=== PATIENT | female | born 1990 | race Caucasian/White ===

== ENCOUNTER 2016-12-23 21:52 | Emergency (ER) | payer OTHER, SELFPAY ==
[~2016-12-23 21:52] MED LIST: FERR325T3 PO; IBUP80TA PO; PERCOCET PO; PRENTAB7 PO; ZITHTAB PO
[2016-12-23] MEDS ORDERED: MORPHINE 4 MG/ML 1ML SYRINGE As Ordered ONE (22:56)
[2016-12-23] MEDS ORDERED: METOCLOPRAMIDE INJ 10MG/2ML VIAL (J2765) As Ordered ONE (22:56)
[2016-12-23 23:05] LABS: BASO % 0.3 % (0.0-1.0); EOS # 0.1 K/mm3 (0.0-0.50); EOS % 1.1 % (0.0-3.0); LARGE UNSTAINED CELL # 0.1 K/mm3 (0.0-0.4); LYMPH # 2.3 K/mm3 (1.5-6.5); LYMPH % 24.7 % (24.0-44.0); MEAN CORPUSCULAR HEMOGLOBIN 31.4 pg (27.0-33.0); MEAN CORPUSCULAR HGB CONC 34.2 g/dl (32.0-36.5); MONO # 0.5 K/mm3 (0.0-0.8); MONO % 5.1 % (0.0-5.0); NEUTROPHILS # 5.9 K/mm3 (1.8-7.7); NEUTROPHILS % 67.6 % (36.0-66.0); PLATELET COUNT, AUTOMATED 213 k/mm3 (150-450); RED CELL DISTRIBUTION WIDTH 12.6 % (11.5-14.5); WHITE BLOOD COUNT 8.7 K/mm3 (4.0-10.0)
[2016-12-23 23:29] LABS: CONTROL LINE HCG INT CTR LINE PRESENT
[2016-12-23 23:37] LABS: ALBUMIN 3.7 GM/DL (3.2-5.2); ALBUMIN/GLOBULIN RATIO 1.32 (1.00-1.93); ALKALINE PHOSPHATASE 55 U/L (45-117); ALT/SGPT 14 U/L (12-78); AMYLASE 52 U/L (25-115); ANION GAP 7 MEQ/L (8-16); AST/SGOT 9 U/L (15-37); BILIRUBIN,DIRECT 0.2 MG/DL (0.0-0.2); BILIRUBIN,TOTAL 0.5 MG/DL (0.2-1.0); BLOOD UREA NITROGEN 13 MG/DL (7-18); CALCIUM LEVEL 8.2 MG/DL (8.5-10.1); CARBON DIOXIDE LEVEL 26 MEQ/L (21-32); CHLORIDE LEVEL 110 MEQ/L (98-107); CREATININE FOR GFR 0.95 MG/DL (0.55-1.02); GLOMERULAR FILTRATION RATE > 60.0 (>60); GLUCOSE, FASTING 87 MG/DL (70-105); POTASSIUM SERUM 3.5 MEQ/L (3.5-5.1); SODIUM LEVEL 143 MEQ/L (136-145); TOTAL PROTEIN 6.5 GM/DL (6.4-8.2)
[2016-12-23] MEDS ORDERED: GASTROGRAFIN SOLUTION 30ML (Q9963) As Ordered ONE (23:47)
[2016-12-24] MEDS ORDERED: MORPHINE 4 MG/ML 1ML SYRINGE As Ordered ONE (01:02)
[2016-12-24] MEDS ORDERED: ISOVUE-370 76% 100ML VIAL (Q9967) As Ordered ONE (01:55)
--- NOTE | 2016-12-24 02:50 | REPUSA ---
CLINICAL HISTORY: Abdominal pain. TECHNIQUE: Multiple axial, sagittal and coronal CT images were obtained through the abdomen and pelvi s after administration of oral and intravenous contrast material. COMMENTS: 3.5 cm peripherally enhancing cyst of the right ovary. The liver is of uniform attenuation without mass or defect. There is no intra or extrahepatic biliary ductal dilatation. The spleen is normal. The gallbladder is within normal limits. The pancreas is of normal contour and attenuation characteristics. There is no evidence of adrenal mass. Both kidneys demonstrate prompt and equal nephrograms. The kidneys are normal in size, shape and conf iguration. There is no evidence of renal or ureteral mass. No renal or ureteral calculi are identifie d. There is no hydroureter or hydronephrosis. No evidence for appendicitis. There is no bowel wall thickening. No evidence for small or large joshua l obstruction. There is no evidence of intrinsic or extrinsic bladder mass. There is small amount of free pelvic flu id. Images of the lung bases show no evidence of pleural or parenchymal mass. There are no pleural effusi ons. The bony structures are free of lytic or blastic lesions. Changes of pelvic congestion syndrome. IMPRESSION: Ruptured follicle/corpus luteum cyst of the right ovary. Small amount of free fluid in the pelvis. Unremarkable intrauterine device. Mildly thickened bladder. Tiny air density in the bladder. Please correlate with recent instrumentati on. Thank you for your kind referral of this patient.
[2016-12-24] MEDS ORDERED: PERCOCET 5MG/325MG TAB As Ordered ONE (03:37)
--- NOTE | 2016-12-24 03:47 | EDDOCDS ---
Physician Documentation Name: Saurabh Delgado Age: 26 yrs Sex: Female : 1990 Arrival Date: 12/23/2016 Time: 21:52 Bed 7 Private MD: Ben [facility] Disposition: 12/24/16 03:24 Discharged to Home/Self Care. Impression: Unspecified ovarian cysts - ruptured, Abnormal findings on diagnostic imaging of other abdominal regions, including retroperitoneum. - Condition is Stable. - Discharge Instructions: Ovarian Cyst, Ovarian Cyst, [id number]. - Prescriptions for Percocet 5- 325 mg Oral Tablet - take 1 tablet by ORAL route every 6 hours As needed MDD: 4 tabs; 20 tablet. - Medication Reconciliation, Local Pharmacy Hours form. - Follow up: Yanique Santos MD; When: 2 - 3 days; Reason: Continuance of care. - Problem is an acute exacerbation. - Symptoms have improved. Historical: - Allergies: no known allergies; - Home Meds: 1. Singulair 10 mg Oral tab 1 tab once daily 2. Zyrtec 10 mg Oral chew 1 tab once daily - PMHx: Seasonal Allergies; - PSHx: ; - Social history: Smoking status: Patient states former smoker of tobacco. No barriers to communication noted, The patient speaks fluent Divehi. - Family history: Not pertinent. - : The pt / caregiver states he / she is not on anticoagulants. Home medication list is obtained from the patient. - Exposure Risk Screening:: None identified. Vital Signs: 12/23 21:54 BP 114 / 68; Pulse 67; Resp 18; Temp 97.6(O); Pulse Ox 100% on R/A; Weight 61.23 kg / ct3 134.99 lbs (R); Height 5 ft. 6 in. (167.64 cm) (R); Pain 9/10; 23:15 BP 123 / 80 (auto/); mgs 23:16 Pulse 74 MON; Pulse Ox 100% ; mgs 23:18 BP 115 / 72 (auto/); mgs 23:18 Pulse 70 MON; Pulse Ox 99% ; mgs 23:48 BP 103 / 57 (auto/); mgs 23:48 Pulse 70 MON; Pulse Ox 98% ; mgs 12/24 00:18 BP 101 / 66 (auto/); mgs 00:18 Pulse 62 MON; Pulse Ox 99% ; mgs 00:48 BP 107 / 59 (auto/); mgs 00:48 Pulse 70 MON; Pulse Ox 97% ; mgs 01:18 BP 103 / 57 (auto/); mgs 01:18 Pulse 68 MON; Pulse Ox 97% ; mgs 03:39 BP 112 / 67; Pulse 82; Resp 18; Temp 98.8(TE); Pulse Ox 99% on R/A; Pain 7/10; mdr 12/23 21:54 Body Mass Index 21.79 (61.23 kg, 167.64 cm) ct3 MDM: 12/23 22:52 Undress patient appropriately for examination ordered. mm11 22:52 IV Saline Lock ordered. 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 mm11 22:52 morphine 4 mg IVP every 30 minutes; Document pain score/vitals after each dose (Hold if mm11 SBP < 90mmHg) x2 ordered. 22:52 Metoclopramide 10 mg IV at 40 mg/hr once over 15 mins ordered. mm11 22:53 NOTHING BY MOUTH+DIET ordered. EDMS 22:53 Amylase Ordered. EDMS 22:53 Basic Metabolic Profile Ordered. EDMS 22:53 CBC with Diff Ordered. EDMS 22:53 HCG,Serum Qualitative Ordered. EDMS 22:53 Lipase Ordered. EDMS 22:53 Liver Profile Ordered. EDMS 22:53 Urinalysis Ordered. EDMS 22:53 -Blood Culture Ordered. EDMS 22:53 Urine Culture Ordered. EDMS 23:25 CBC with Diff Reviewed. mm11 23:34 Urinalysis Reviewed. mm11 23:34 HCG,Serum Qualitative Reviewed. mm11 23:35 CT ABD & PELVIS: IV and Oral Contrast Ordered. EDMS 23:45 Basic Metabolic Profile Reviewed. mm11 23:45 Liver Profile Reviewed. mm11 23:45 Amylase Reviewed. mm11 23:45 HCG,Serum Qualitative Reviewed. mm11 23:45 Lipase Reviewed. mm11 23:46 Diatrizoate Meglumine & Sodium Liquid 10 ml PO once; mix in 290cc of water ordered. mgs 23:46 Diatrizoate Meglumine & Sodium Liquid 10 ml PO once; mix in 290cc of water ordered. mgs 12/24 01:05 Financial registration complete. [facility] 01:38 [facility] Payment Agreement was scanned into [employer] and attached to record. [facility] 03:23 oxyCODONE-acetaminophen 5 mg-325 mg 1 tabs PO once ordered. mm11 Administered Medications: 12/23 23:10 Drug: morphine 4 mg [morphine 4 mg/mL intravenous cartridge (1 mL)] Route: IVP; Site: mgs right antecubital; 23:12 Drug: Metoclopramide 10 mg [metoclopramide 5 mg/mL injection solution] Route: IV; Rate: mgs 40 mg/hr; Infused Over: 15 mins; Site: right antecubital; 23:59 Drug: Diatrizoate Meglumine & Sodium 10 ml [diatrizoate meglumine and diat.sodium 66 mgs %-10 % oral solution (10 mL)] Route: PO; 12/24 00:30 Drug: Diatrizoate Meglumine & Sodium 10 ml [diatrizoate meglumine and diat.sodium 66 mgs %-10 % oral solution (10 mL)] Route: PO; 01:06 Drug: morphine 4 mg [morphine 4 mg/mL intravenous cartridge (1 mL)] Route: IVP; Site: mv5 right antecubital; Signatures: Dispatcher [employer] George Varela DO DO mm11 Kenia Tee RN RN rs3 Quyen Bethea [facility] George Haskins RN RN mgs Alison Dennis RN mv5 The chart was reviewed and I authenticate all verbal orders and agree with the evaluation and treatment provided.Attachments: 01:38 [facility] Payment Agreement [facility] MTDD
--- NOTE | 2016-12-24 03:47 | EDDOCDS ---
Nurse's Notes [facility] Name: Saurabh Delgado Age: 26 yrs Sex: Female : 1990 Arrival Date: 12/23/2016 Time: 21:52 Bed 7 Private MD: [place] [facility] [place]: Unspecified ovarian cysts-ruptured;Abnormal findings on diagnostic imaging of other abdominal regions, including retroperitoneum Presentation: 12/23 22:04 Presenting complaint: Patient states: lower abdominal pain for 2 days. heard pop at the rs3 scar site since then sharp pain in lower abdomen. nausea/constipation for 2 days. Risk factors: the patient reports no vaginal bleeding. Adult Sepsis Screening: The patient does not have new or worsening altered mentation. Patient's respiratory rate is less than 22. Systolic blood pressure is greater than 100. Patient has a qSOFA score of 0- Negative Sepsis Screen. Suicide/Homicide risk assessment- the patient denies having any suicidal and/or homicidal ideations and does not present with any other emotional, behavioral or mental health complaints. 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 Transition of care: patient was not received from another setting of care. 22:04 Acuity: YAJAIRA Level 3 rs3 22:04 Method Of Arrival: Walkin/Carried/Asstd rs3 Triage Assessment: 22:07 General: Appears in no apparent distress. Pain: Location: pelvis. HIV screening NA for rs3 this visit Offered previously. GI: No deficits noted. Historical: - Allergies: no known allergies; - Home Meds: 1. Singulair 10 mg Oral tab 1 tab once daily 2. Zyrtec 10 mg Oral chew 1 tab once daily - PMHx: Seasonal Allergies; - PSHx: ; - Social history: Smoking status: Patient states former smoker of tobacco. No barriers to communication noted, The patient speaks fluent French. - Family history: Not pertinent. - : The pt / caregiver states he / she is not on anticoagulants. Home medication list is obtained from the patient. - Exposure Risk Screening:: None identified. Screenin:29 Screening information is obtained from the patient. Fall risk: No risks identified. mgs Assistance ADL's: requires no assistance with activities of daily living. Abuse/DV Screen: The patient / caregiver reports he/she is: not in a situation that causes fear, pain or injury. Nutritional screening: No deficits noted. Advance Directives: Currently, there is no health care proxy. There is no active DNR order. home support is adequate. Assessment: 23:11 General: Appears uncomfortable, Behavior is appropriate for age, cooperative. Pain: mgs Location: pelvis Pain currently is 10 out of 10 on a pain scale. Neurological: Level of Consciousness is awake, alert, Oriented to person, place, time. Cardiovascular: Capillary refill < 3 seconds Heart tones S1 S2 present. Respiratory: Airway is patent Respiratory effort is even, unlabored, Respiratory pattern is regular, symmetrical. GI: Abdomen is flat, Bowel sounds present X 4 quads. Abd is tender to palpation in suprapubic area. Derm: Skin is pink, warm & dry. 23:28 General: Appears in no apparent distress, Behavior is appropriate for age, cooperative. mgs Pain: Location: suprapubic area Pain currently is 4 out of 10 on a pain scale. Neurological: Level of Consciousness is awake, alert, Oriented to person, place, time. Cardiovascular: Capillary refill < 3 seconds. Respiratory: Airway is patent Respiratory effort is even, unlabored, Respiratory pattern is regular, symmetrical. Derm: Skin is pink, warm & dry. 12/24 00:39 General: Appears in no apparent distress, Behavior is appropriate for age, cooperative. mgs Pain: Location: pelvis Pain currently is 4 out of 10 on a pain scale. Neurological: Level of Consciousness is awake, alert, Oriented to person, place, time. Cardiovascular: Capillary refill < 3 seconds. Respiratory: Airway is patent Respiratory effort is even, unlabored, Respiratory pattern is regular, symmetrical. Derm: Skin is pink, warm & dry. 01:21 General: Appears in no apparent distress, Behavior is cooperative. Neurological: Level mgs of Consciousness is awake, alert, Oriented to person, place, time. Cardiovascular: Capillary refill < 3 seconds. Respiratory: Airway is patent Respiratory effort is even, unlabored, Respiratory pattern is regular, symmetrical. Derm: Skin is pink, warm & dry. 02:06 General: Appears in no apparent distress, Behavior is appropriate for age, cooperative. mgs Neurological: Level of Consciousness is awake, alert, Oriented to person, place, time. Cardiovascular: Capillary refill < 3 seconds. Respiratory: Airway is patent Respiratory effort is even, unlabored, Respiratory pattern is regular, symmetrical. Derm: Skin is pink, warm & dry. 03:08 General: Appears in no apparent distress, Behavior is cooperative. Pain: Location: mgs suprapubic area Pain currently is 5 out of 10 on a pain scale. Quality of pain is described as crampy. Neurological: Level of Consciousness is awake, alert, Oriented to person, place, time. Cardiovascular: Capillary refill < 3 seconds. Respiratory: Airway is patent Respiratory effort is even, unlabored, Respiratory pattern is regular, symmetrical. Derm: Skin is pink, warm & dry. 03:45 General: Appears in no apparent distress, Behavior is appropriate for age, cooperative. mgs Neurological: Level of Consciousness is awake, alert, Oriented to person, place, time. Cardiovascular: Capillary refill < 3 seconds. Respiratory: Airway is patent Respiratory effort is even, unlabored, Respiratory pattern is regular, symmetrical. Derm: Skin is pink, warm & dry. Vital Signs: 12/23 21:54 BP 114 / 68; Pulse 67; Resp 18; Temp 97.6(O); Pulse Ox 100% on R/A; Weight 61.23 kg ct3 (R); Height 5 ft. 6 in. (167.64 cm) (R); Pain 9/10; 23:15 BP 123 / 80 (auto/); mgs 23:16 Pulse 74 MON; Pulse Ox 100% ; mgs 23:18 BP 115 / 72 (auto/); mgs 23:18 Pulse 70 MON; Pulse Ox 99% ; mgs 23:48 BP 103 / 57 (auto/); mgs 23:48 Pulse 70 MON; Pulse Ox 98% ; mgs 02 00:18 BP 101 / 66 (auto/); mgs 00:18 Pulse 62 MON; Pulse Ox 99% ; mgs 00:48 BP 107 / 59 (auto/); mgs 00:48 Pulse 70 MON; Pulse Ox 97% ; mgs 01:18 BP 103 / 57 (auto/); mgs 01:18 Pulse 68 MON; Pulse Ox 97% ; mgs 03:39 BP 112 / 67; Pulse 82; Resp 18; Temp 98.8(TE); Pulse Ox 99% on R/A; Pain 7/10; mdr 12/23 21:54 Body Mass Index 21.79 (61.23 kg, 167.64 cm) ct3 Vitals: 02 21:54 Log In Time: December 23, 2016 at 21:51. ct3 ED Course: 21:53 Patient visited by Tanisha Wells PCA. ct3 21:53 [place] [facility] [place] Physician. ct3 21:53 Patient moved to Waiting ct3 21:55 Patient moved to Pre RCE ct3 22:06 Triage Initiated rs3 22:07 Patient visited by Kenia Tee RN. rs3 22:36 Heena Cortes, RN is Primary Nurse. kc3 22:36 Patient moved to 7 kc3 22:38 George Lay DO is Attending Physician. mm11 22:38 Patient visited by George Lay DO. mm11 22:47 Primary Nurse role handed off by Heena Cortes RN ar3 22:50 Patient visited by George Lay DO. mm11 23:11 George Haskins RN is Primary Nurse. mgs 23:13 Inserted saline lock: 20 gauge in right antecubital area and blood collected. The mgs patient tolerated the procedure well. 23:18 Urinalysis Sent. mgs 23:18 Urine Culture Sent. mgs 23:33 Patient visited by George Haskins RN. mgs 02 00:45 Patient visited by George Haskins RN. mgs 01:20 Patient visited by George Lay DO. mm11 01:22 Patient visited by George Haskins RN. mgs 01:38 [facility] Payment Agreement was scanned into [employer] and attached to record. slh 02:07 Patient visited by George Haskins RN. mgs 03:07 Patient visited by George Lay DO. mm11 03:11 CT ABD & PELVIS: IV and Oral Contrast Returned. EDMS 03:23 Yanique Santos MD is Referral Physician. mm11 03:[address] PCA. mdr 03:45 The patient / caregiver is instructed regarding the plan of care and ED course. mgs 03:45 Discontinued IV lock intact, bleeding controlled, pressure dressing applied, No mgs redness/swelling at site. No procedures done that require assistance. Administered Medications: 12/23 23:10 Drug: morphine 4 mg [morphine 4 mg/mL intravenous cartridge (1 mL)] Route: IVP; Site: mgs right antecubital; 23:12 Drug: Metoclopramide 10 mg [metoclopramide 5 mg/mL injection solution] Route: IV; Rate: mgs 40 mg/hr; Infused Over: 15 mins; Site: right antecubital; 23:59 Drug: Diatrizoate Meglumine & Sodium 10 ml [diatrizoate meglumine and diat.sodium 66 mgs %-10 % oral solution (10 mL)] Route: PO; 12/24 00:30 Drug: Diatrizoate Meglumine & Sodium 10 ml [diatrizoate meglumine and diat.sodium 66 mgs %-10 % oral solution (10 mL)] Route: PO; 01:06 Drug: morphine 4 mg [morphine 4 mg/mL intravenous cartridge (1 mL)] Route: IVP; Site: mv5 right antecubital; Order Results: Lab Order: Amylase; SPEC'M 12/23/16 22:59 Test: AMYLASE; Value: 52; Range: 25-115; Units: U/L; Status: F Lab Order: Basic Metabolic Profile; SPEC'M 12/23/16 22:59 Test: GLUCOSE, FASTING; Value: 87; Range: 70-105; Units: MG/DL; Status: F Test: BLOOD UREA NITROGEN; Value: 13; Range: 7-18; Units: MG/DL; Status: F Test: CREATININE FOR GFR; Value: 0.95; Range: 0.55-1.02; Units: MG/DL; Status: F Test: SODIUM LEVEL; Range: 136-145; Units: MEQ/L; Status: I Test: POTASSIUM SERUM; Range: 3.5-5.1; Units: MEQ/L; Status: I Test: CHLORIDE LEVEL; Range: 98-107; Units: MEQ/L; Status: I Test: CARBON DIOXIDE LEVEL; Range: 21-32; Units: MEQ/L; Status: I Test: ANION GAP; Range: 8-16; Units: MEQ/L; Status: I Test: CALCIUM LEVEL; Range: 8.5-10.1; Units: MG/DL; Status: I Test: GLOMERULAR FILTRATION RATE; Value: > 60.0; Range: >60; Status: F Test: SODIUM LEVEL; Value: 143; Range: 136-145; Units: MEQ/L; Status: F Test: POTASSIUM SERUM; Value: 3.5; Range: 3.5-5.1; Units: MEQ/L; Status: F Test: CHLORIDE LEVEL; Value: 110; Range: 98-107; Abnormal: Above high normal; Units: MEQ/L; Status: F Test: CARBON DIOXIDE LEVEL; Value: 26; Range: 21-32; Units: MEQ/L; Status: F Test: ANION GAP; Value: 7; Range: 8-16; Abnormal: Below low normal; Units: MEQ/L; Status: F Test: CALCIUM LEVEL; Value: 8.2; Range: 8.5-10.1; Abnormal: Below low normal; Units: MG/DL; Status: F Test Note: ; Units are mL/min/1.73 m2 Chronic Kidney Disease Staging per NKF: Stage I & II GFR >=60 Normal to Mildly Decreased Stage III GFR 30-59 Moderately Decreased Stage IV GFR 15-29 Severely Decreased Stage V GFR <15 Very Little GFR Left ESRD GFR <15 on HOUSEH[employer] APPLIANCE MECHANIC Lab Order: CBC with Diff; SPEC'M 12/23/16 22:59 Test: WHITE BLOOD COUNT; Value: 8.7; Range: 4.0-10.0; Units: K/mm3; Status: F Test: RED BLOOD COUNT; Value: 4.18; Range: 4.00-5.40; Units: M/mm3; Status: F Test: HEMOGLOBIN; Value: 13.1; Range: 12.0-16.0; Units: g/dl; Status: F Test: HEMATOCRIT; Value: 38.5; Range: 36.0-47.0; Units: %; Status: F Test: MEAN CORPUSCULAR VOLUME; Value: 92.0; Range: 80.0-96.0; Units: fl; Status: F Test: MEAN CORPUSCULAR HEMOGLOBIN; Value: 31.4; Range: 27.0-33.0; Units: pg; Status: F Test: MEAN CORPUSCULAR HGB CONC; Value: 34.2; Range: 32.0-36.5; Units: g/dl; Status: F Test: RED CELL DISTRIBUTION WIDTH; Value: 12.6; Range: 11.5-14.5; Units: %; Status: F Test: PLATELET COUNT, AUTOMATED; Value: 213; Range: 150-450; Units: k/mm3; Status: F Test: NEUTROPHILS %; Value: 67.6; Range: 36.0-66.0; Abnormal: Above high normal; Units: %; Status: F Test: LYMPH %; Value: 24.7; Range: 24.0-44.0; Units: %; Status: F Test: MONO %; Value: 5.1; Range: 0.0-5.0; Abnormal: Above high normal; Units: %; Status: F Test: EOS %; Value: 1.1; Range: 0.0-3.0; Units: %; Status: F Test: BASO %; Value: 0.3; Range: 0.0-1.0; Units: %; Status: F Test: LARGE UNSTAINED CELL %; Value: 1.0; Range: 0.0-4.0; Units: %; Status: F Test: NEUTROPHILS #; Value: 5.9; Range: 1.8-7.7; Units: K/mm3; Status: F Test: LYMPH #; Value: 2.3; Range: 1.5-6.5; Units: K/mm3; Status: F Test: MONO #; Value: 0.5; Range: 0.0-0.8; Units: K/mm3; Status: F Test: EOS #; Value: 0.1; Range: 0.0-0.50; Units: K/mm3; Status: F Test: BASO #; Value: 0.0; Range: 0.0-0.2; Units: K/mm3; Status: F Test: LARGE UNSTAINED CELL #; Value: 0.1; Range: 0.0-0.4; Units: K/mm3; Status: F Lab Order: HCG,Serum Qualitative; SPEC'M 12/23/16 22:59 Test: HCG, SERUM QUALITATIVE; Value: NEGATIVE; Range: NEGATIVE; Status: F Lab Order: Lipase; SPEC' 12/23/16 22:59 Test: LIPASE; Value: 225; Range: 73-393; Units: U/L; Status: F Lab Order: Liver Profile; SPEC'M 12/23/16 22:59 Test: AST/SGOT; Value: 9; Range: 15-37; Abnormal: Below low normal; Units: U/L; Status: F Test: ALT/SGPT; Value: 14; Range: 12-78; Units: U/L; Status: F Test: ALKALINE PHOSPHATASE; Value: 55; Range: 45-117; Units: U/L; Status: F Test: BILIRUBIN,TOTAL; Value: 0.5; Range: 0.2-1.0; Units: MG/DL; Status: F Test: BILIRUBIN,DIRECT; Value: 0.2; Range: 0.0-0.2; Units: MG/DL; Status: F Test: TOTAL PROTEIN; Value: 6.5; Range: 6.4-8.2; Units: GM/DL; Status: F Test: ALBUMIN; Value: 3.7; Range: 3.2-5.2; Units: GM/DL; Status: F Test: ALBUMIN/GLOBULIN RATIO; Value: 1.32; Range: 1.00-1.93; Status: F Lab Order: Urinalysis; SPEC'M 12/23/16 23:16 Test: APPEARANCE, URINE; Value: CLEAR; Range: CLEAR; Status: F Test: COLOR, URINE; Value: YELLOW; Range: YELLOW; Status: F Test: PH,URINE; Value: 6.0; Range: 5.0-9.0; Units: UNITS; Status: F Test: SPECIFIC GRAVITY URINE AUTO; Value: 1.013; Range: 1.002-1.035; Status: F Test: PROTEIN, URINE AUTO; Value: NEGATIVE; Range: NEGATIVE; Units: mg/dL; Status: F Test: GLUCOSE, URINE (UA) AUTO; Value: NEGATIVE; Range: NEGATIVE; Units: mg/dL; Status: F Test: KETONE, URINE AUTO; Value: NEGATIVE; Range: NEGATIVE; Units: mg/dL; Status: F Test: UROBILINOGEN, URINE AUTO; Value: 0.2; Range: 0.0-2.0; Units: mg/dL; Status: F Test: BILIRUBIN, URINE AUTO; Value: NEGATIVE; Range: NEGATIVE; Status: F Test: NITRITE, URINE AUTO; Value: NEGATIVE; Range: NEGATIVE; Status: F Test: LEUKOCYTE ESTERASE, URINE AUTO; Value: TRACE; Range: NEGATIVE; Abnormal: Above high normal; Status: F Test: BLOOD, URINE BLOOD; Value: NEGATIVE; Range: NEGATIVE; Status: F Test: WBC, URINE AUTO; Value: 12; Range: 0-3; Abnormal: Above high normal; Units: /HPF; Status: F Test: RBC, URINE AUTO; Value: 1; Range: 0-3; Units: /HPF; Status: F Test: BACTERIA, URINE AUTO; Value: 1+; Range: NEGATIVE; Abnormal: Above high normal; Status: F Test: SQUAMOUS EPITHELIAL CELL UR AU; Value: 0; Range: 0-6; Units: /HPF; Status: F Test: MUCUS, URINE; Value: SMALL; Range: NEGATIVE; Status: F Test: HYALINE CAST, URINE AUTO; Value: 0; Range: 0-1; Units: /LPF; Status: F Radiology Order: CT ABD & PELVIS: IV and Oral Contrast Test: CT ABD & PELVIS: IV and Oral Contrast REASON FOR EXAMINATION: Abdomen Pain; ; CLINICAL HISTORY: Abdominal pain.; TECHNIQUE: Multiple axial, sagittal and coronal CT images were obtained through the abdomen and pelvi; s after administration of oral and intravenous contrast material.; COMMENTS:; 3.5 cm peripherally enhancing cyst of the right ovary.; The liver is of uniform attenuation without mass or defect. There is no intra or extrahepatic biliary; ductal dilatation. The spleen is normal. The gallbladder is within normal limits. The pancreas is of; normal contour and attenuation characteristics. There is no evidence of adrenal mass.; Both kidneys demonstrate prompt and equal nephrograms. The kidneys are normal in size, shape and conf; iguration. There is no evidence of renal or ureteral mass. No renal or ureteral calculi are identifie; d. There is no hydroureter or hydronephrosis.; No evidence for appendicitis. There is no bowel wall thickening. No evidence for small or large joshua; l obstruction.; There is no evidence of intrinsic or extrinsic bladder mass. There is small amount of free pelvic flu; id.; Images of the lung bases show no evidence of pleural or parenchymal mass. There are no pleural effusi; ons.; The bony structures are free of lytic or blastic lesions.; Changes of pelvic congestion syndrome.; IMPRESSION:; Ruptured follicle/corpus luteum cyst of the right ovary.; Small amount of free fluid in the pelvis.; Unremarkable intrauterine device.; Mildly thickened bladder. Tiny air density in the bladder. Please correlate with recent instrumentati; on.; Thank you for your kind referral of this patient.; ; Outcome: 03:24 Discharge ordered by Provider. mm11 03:45 Discharge Assessment: Patient awake, alert and oriented x 3. No cognitive and/or mgs functional deficits noted. Patient verbalized understanding of disposition instructions. patient administered narcotics - yes. Pt provided with safe discharge. The following High Risk Discharge criteria are identified: None. Discharged to home ambulatory, with significant other. Condition: stable. Discharge instructions given to patient, Instructed on discharge instructions, follow up and referral plans. medication usage, Demonstrated understanding of instructions, medications, Pt was receptive of discharge instructions/ teaching. Prescriptions given X 1. CT Study completed. Property sent home with patient. 03:46 Patient left the ED. mgs Signatures: Dispatcher [employer] EDMS George Lay, DO mm11 Kenia Tee RN RN rs3 Nickie Ivy, THIRD HAND THIRD HAND ar3 Tanisha Wells, THIRD HAND THIRD HAND ct3 Quyen Bethea George Reyes,ANTHONY RN mgs Jason Street, THIRD HAND THIRD HAND mdr Renee Knox,RN RN kc3 Alison Dennis,RN RN mv5 MTDD
--- NOTE | 2016-12-26 04:46 | EDDOCDS ---
Physician Documentation [facility] Name: Saurabh Delgado Age: 26 yrs Sex: Female : 1990 Arrival Date: 12/23/2016 Time: 21:52 Bed 7 Private MD: Ben [facility] [place] Disposition: 12/24/16 03:24 Discharged to Home/Self Care. Impression: Unspecified ovarian cysts - ruptured, Abnormal findings on diagnostic imaging of other abdominal regions, including retroperitoneum. - Condition is Stable. - Discharge Instructions: Ovarian Cyst, Ovarian Cyst, [id number]. - Prescriptions for Percocet 5- 325 mg Oral Tablet - take 1 tablet by ORAL route every 6 hours As needed MDD: 4 tabs; 20 tablet. - Medication Reconciliation, Local Pharmacy Hours form. - Follow up: Yanique Santos MD; When: 2 - 3 days; Reason: Continuance of care. - Problem is an acute exacerbation. - Symptoms have improved. Historical: - Allergies: no known allergies; - Home Meds: 1. Singulair 10 mg Oral tab 1 tab once daily 2. Zyrtec 10 mg Oral chew 1 tab once daily - PMHx: Seasonal Allergies; - PSHx: ; - Social history: Smoking status: Patient states former smoker of tobacco. No barriers to communication noted, The patient speaks fluent Indonesian. - Family history: Not pertinent. - : The pt / caregiver states he / she is not on anticoagulants. Home medication list is obtained from the patient. - Exposure Risk Screening:: None identified. Vital Signs: 12/23 21:54 BP 114 / 68; Pulse 67; Resp 18; Temp 97.6(O); Pulse Ox 100% on R/A; Weight 61.23 kg / ct3 134.99 lbs (R); Height 5 ft. 6 in. (167.64 cm) (R); Pain 9/10; 23:15 BP 123 / 80 (auto/); mgs 23:16 Pulse 74 MON; Pulse Ox 100% ; mgs 23:18 BP 115 / 72 (auto/); mgs 23:18 Pulse 70 MON; Pulse Ox 99% ; mgs 23:48 BP 103 / 57 (auto/); mgs 23:48 Pulse 70 MON; Pulse Ox 98% ; mgs 12/24 00:18 BP 101 / 66 (auto/); mgs 00:18 Pulse 62 MON; Pulse Ox 99% ; mgs 00:48 BP 107 / 59 (auto/); mgs 00:48 Pulse 70 MON; Pulse Ox 97% ; mgs 01:18 BP 103 / 57 (auto/); mgs 01:18 Pulse 68 MON; Pulse Ox 97% ; mgs 03:39 BP 112 / 67; Pulse 82; Resp 18; Temp 98.8(TE); Pulse Ox 99% on R/A; Pain 7/10; mdr 12/23 21:54 Body Mass Index 21.79 (61.23 kg, 167.64 cm) ct3 MDM: 12/23 22:52 Undress patient appropriately for examination ordered. mm11 22:52 IV Saline Lock ordered. mm11 22:52 Power Generating [employer] Operator/Pulse Ox/q 30 min VS ordered. mm11 22:52 morphine 4 mg IVP every 30 minutes; Document pain score/vitals after each dose (Hold if mm11 SBP < 90mmHg) x2 ordered. 22:52 Metoclopramide 10 mg IV at 40 mg/hr once over 15 mins ordered. mm11 22:53 NOTHING BY MOUTH+DIET ordered. EDMS 22:53 Amylase Ordered. EDMS 22:53 Basic Metabolic Profile Ordered. EDMS 22:53 CBC with Diff Ordered. EDMS 22:53 HCG,Serum Qualitative Ordered. EDMS 22:53 Lipase Ordered. EDMS 22:53 Liver Profile Ordered. EDMS 22:53 Urinalysis Ordered. EDMS 22:53 -Blood Culture Ordered. EDMS 22:53 Urine Culture Ordered. EDMS 23:25 CBC with Diff Reviewed. mm11 23:34 Urinalysis Reviewed. mm11 23:34 HCG,Serum Qualitative Reviewed. mm11 23:35 CT ABD & PELVIS: IV and Oral Contrast Ordered. EDMS 23:45 Basic Metabolic Profile Reviewed. mm11 23:45 Liver Profile Reviewed. mm11 23:45 Amylase Reviewed. mm11 23:45 HCG,Serum Qualitative Reviewed. mm11 23:45 Lipase Reviewed. mm11 23:46 Diatrizoate Meglumine & Sodium Liquid 10 ml PO once; mix in 290cc of water ordered. mgs 23:46 Diatrizoate Meglumine & Sodium Liquid 10 ml PO once; mix in 290cc of water ordered. mgs 12/24 01:05 Financial registration complete. [facility] 01:38 [facility] Payment Agreement was scanned into [employer] and attached to record. [facility] 03:23 oxyCODONE-acetaminophen 5 mg-325 mg 1 tabs PO once ordered. mm11 14:09 T-Sheet-- Draft Copy was scanned into [employer] and attached to record. 14:09 Radiology Report was scanned into [employer] and attached to record. gb Administered Medications: 12/23 23:10 Drug: morphine 4 mg [morphine 4 mg/mL intravenous cartridge (1 mL)] Route: IVP; Site: mgs right antecubital; 23:12 Drug: Metoclopramide 10 mg [metoclopramide 5 mg/mL injection solution] Route: IV; Rate: mgs 40 mg/hr; Infused Over: 15 mins; Site: right antecubital; 23:59 Drug: Diatrizoate Meglumine & Sodium 10 ml [diatrizoate meglumine and diat.sodium 66 mgs %-10 % oral solution (10 mL)] Route: PO; 12/24 00:30 Drug: Diatrizoate Meglumine & Sodium 10 ml [diatrizoate meglumine and diat.sodium 66 mgs %-10 % oral solution (10 mL)] Route: PO; 01:06 Drug: morphine 4 mg [morphine 4 mg/mL intravenous cartridge (1 mL)] Route: IVP; Site: mv5 right antecubital; Signatures: Dispatcher [employer] EDMS Eveline Morrow, Reg Reg gb George Lay, DO mm11 Kenia Tee RN RN rs3 Quyen Bethea [facility] George Haskins RN RN mgs Vannedery, Megan RN mv5 The chart was reviewed and I authenticate all verbal orders and agree with the evaluation and treatment provided.Attachments: 01:38 [facility] Payment Agreement [facility] 14:09 T-Sheet-- Draft Copy Chart Complete MTDD
--- NOTE | 2016-12-26 04:47 | EDDOCDS ---
[facility]ation [facility] Name: Saurabh Delgado Age: 26 yrs Sex: Female : 1990 Arrival Date: 12/23/2016 Time: 21:52 Bed 7 Private MD: [place] [facility] [place]position: 12/24/16 03:24 Discharged to Home/Self Care. Impression: Unspecified ovarian cysts - ruptured, Abnormal findings on diagnostic imaging of other abdominal regions, including retroperitoneum. - Condition is Stable. - Discharge Instructions: Ovarian Cyst, Ovarian Cyst, [id number]. - Prescriptions for Percocet 5- 325 mg Oral Tablet - take 1 tablet by ORAL route every 6 hours As needed MDD: 4 tabs; 20 tablet. - Medication Reconciliation, Local Pharmacy Hours form. - Follow up: Yanique Santos MD; When: 2 - 3 days; Reason: Continuance of care. - Problem is an acute exacerbation. - Symptoms have improved. Historical: - Allergies: no known allergies; - Home Meds: 1. Singulair 10 mg Oral tab 1 tab once daily 2. Zyrtec 10 mg Oral chew 1 tab once daily - PMHx: Seasonal Allergies; - PSHx: ; - Social history: Smoking status: Patient states former smoker of tobacco. No barriers to communication noted, The patient speaks fluent Czech. - Family history: Not pertinent. - : The pt / caregiver states he / she is not on anticoagulants. Home medication list is obtained from the patient. - Exposure Risk Screening:: None identified. Vital Signs: 12/23 21:54 BP 114 / 68; Pulse 67; Resp 18; Temp 97.6(O); Pulse Ox 100% on R/A; Weight 61.23 kg / ct3 134.99 lbs (R); Height 5 ft. 6 in. (167.64 cm) (R); Pain 9/10; 23:15 BP 123 / 80 (auto/); mgs 23:16 Pulse 74 MON; Pulse Ox 100% ; mgs 23:18 BP 115 / 72 (auto/); mgs 23:18 Pulse 70 MON; Pulse Ox 99% ; mgs 23:48 BP 103 / 57 (auto/); mgs 23:48 Pulse 70 MON; Pulse Ox 98% ; mgs 12/24 00:18 BP 101 / 66 (auto/); mgs 00:18 Pulse 62 MON; Pulse Ox 99% ; mgs 00:48 BP 107 / 59 (auto/); mgs 00:48 Pulse 70 MON; Pulse Ox 97% ; mgs 01:18 BP 103 / 57 (auto/); mgs 01:18 Pulse 68 MON; Pulse Ox 97% ; mgs 03:39 BP 112 / 67; Pulse 82; Resp 18; Temp 98.8(TE); Pulse Ox 99% on R/A; Pain 7/10; mdr 12/23 21:54 Body Mass Index 21.79 (61.23 kg, 167.64 cm) ct3 MDM: 12/23 22:52 Undress patient appropriately for examination ordered. mm11 22:52 IV Saline Lock ordered. mm11 22:52 Beauty School Instructor/Pulse Ox/q 30 min VS ordered. mm11 22:52 morphine 4 mg IVP every 30 minutes; Document pain score/vitals after each dose (Hold if mm11 SBP < 90mmHg) x2 ordered. 22:52 Metoclopramide 10 mg IV at 40 mg/hr once over 15 mins ordered. mm11 22:53 NOTHING BY MOUTH+DIET ordered. EDMS 22:53 Amylase Ordered. EDMS 22:53 Basic Metabolic Profile Ordered. EDMS 22:53 CBC with Diff Ordered. EDMS 22:53 HCG,Serum Qualitative Ordered. EDMS 22:53 Lipase Ordered. EDMS 22:53 Liver Profile Ordered. EDMS 22:53 Urinalysis Ordered. EDMS 22:53 -Blood Culture Ordered. EDMS 22:53 Urine Culture Ordered. EDMS 23:25 CBC with Diff Reviewed. mm11 23:34 Urinalysis Reviewed. mm11 23:34 HCG,Serum Qualitative Reviewed. mm11 23:35 CT ABD & PELVIS: IV and Oral Contrast Ordered. EDMS 23:45 Basic Metabolic Profile Reviewed. mm11 23:45 Liver Profile Reviewed. mm11 23:45 Amylase Reviewed. mm11 23:45 HCG,Serum Qualitative Reviewed. mm11 23:45 Lipase Reviewed. mm11 23:46 Diatrizoate Meglumine & Sodium Liquid 10 ml PO once; mix in 290cc of water ordered. mgs 23:46 Diatrizoate Meglumine & Sodium Liquid 10 ml PO once; mix in 290cc of water ordered. mgs 12/24 01:05 Financial registration complete. [facility] 01:38 [facility] Payment Agreement was scanned into [employer] and attached to record. [facility] 03:23 oxyCODONE-acetaminophen 5 mg-325 mg 1 tabs PO once ordered. mm11 14:09 T-Sheet-- Draft Copy was scanned into [employer] and attached to record. 14:09 Radiology Report was scanned into [employer] and attached to record. gb Administered Medications: 12/23 23:10 Drug: morphine 4 mg [morphine 4 mg/mL intravenous cartridge (1 mL)] Route: IVP; Site: mgs right antecubital; 23:12 Drug: Metoclopramide 10 mg [metoclopramide 5 mg/mL injection solution] Route: IV; Rate: mgs 40 mg/hr; Infused Over: 15 mins; Site: right antecubital; 23:59 Drug: Diatrizoate Meglumine & Sodium 10 ml [diatrizoate meglumine and diat.sodium 66 mgs %-10 % oral solution (10 mL)] Route: PO; 12/24 00:30 Drug: Diatrizoate Meglumine & Sodium 10 ml [diatrizoate meglumine and diat.sodium 66 mgs %-10 % oral solution (10 mL)] Route: PO; 01:06 Drug: morphine 4 mg [morphine 4 mg/mL intravenous cartridge (1 mL)] Route: IVP; Site: mv5 right antecubital; Signatures: Dispatcher [employer] EDMS Eveline Morrow, Reg Reg gb George Lay, DO mm11 Kenia Tee RN RN rs3 Quyen Bethea [facility] George Haskins RN RN mgs Vannedery, Megan RN mv5 The chart was reviewed and I authenticate all verbal orders and agree with the evaluation and treatment provided.Attachments: 01:38 [facility] Payment Agreement [facility] 14:09 T-Sheet-- Draft Copy Chart Complete MTDD
--- NOTE | 2016-12-26 04:47 | EDDOCDS ---
Nurse's Notes [facility] Name: Saurabh Delgaod Age: 26 yrs Sex: Female : 1990 Arrival Date: 12/23/2016 Time: 21:52 Bed 7 Private MD: Ben [facility] Diagnosis: Unspecified ovarian cysts-ruptured;Abnormal findings on diagnostic imaging of other abdominal regions, including retroperitoneum Presentation: 12/23 22:04 Presenting complaint: Patient states: lower abdominal pain for 2 days. heard pop at the rs3 scar site since then sharp pain in lower abdomen. nausea/constipation for 2 days. Risk factors: the patient reports no vaginal bleeding. Adult Sepsis Screening: The patient does not have new or worsening altered mentation. Patient's respiratory rate is less than 22. Systolic blood pressure is greater than 100. Patient has a qSOFA score of 0- Negative Sepsis Screen. Suicide/Homicide risk assessment- the patient denies having any suicidal and/or homicidal ideations and does not present with any other emotional, behavioral or mental health complaints. Status: Patient is not a access service representative or dependent. Transition of care: patient was not received from another setting of care. 22:04 Acuity: YAJAIRA Level 3 rs3 22:04 Method Of Arrival: Walkin/Carried/Asstd rs3 Triage Assessment: 22:07 General: Appears in no apparent distress. Pain: Location: pelvis. HIV screening NA for rs3 this visit Offered previously. GI: No deficits noted. Historical: - Allergies: no known allergies; - Home Meds: 1. Singulair 10 mg Oral tab 1 tab once daily 2. Zyrtec 10 mg Oral chew 1 tab once daily - PMHx: Seasonal Allergies; - PSHx: ; - Social history: Smoking status: Patient states former smoker of tobacco. No barriers to communication noted, The patient speaks fluent Malay. - Family history: Not pertinent. - : The pt / caregiver states he / she is not on anticoagulants. Home medication list is obtained from the patient. - Exposure Risk Screening:: None identified. Screenin:29 Screening information is obtained from the patient. Fall risk: No risks identified. mgs Assistance ADL's: requires no assistance with activities of daily living. Abuse/DV Screen: The patient / caregiver reports he/she is: not in a situation that causes fear, pain or injury. Nutritional screening: No deficits noted. Advance Directives: Currently, there is no health care proxy. There is no active DNR order. home support is adequate. Assessment: 23:11 General: Appears uncomfortable, Behavior is appropriate for age, cooperative. Pain: mgs Location: pelvis Pain currently is 10 out of 10 on a pain scale. Neurological: Level of Consciousness is awake, alert, Oriented to person, place, time. Cardiovascular: Capillary refill < 3 seconds Heart tones S1 S2 present. Respiratory: Airway is patent Respiratory effort is even, unlabored, Respiratory pattern is regular, symmetrical. GI: Abdomen is flat, Bowel sounds present X 4 quads. Abd is tender to palpation in suprapubic area. Derm: Skin is pink, warm & dry. 23:28 General: Appears in no apparent distress, Behavior is appropriate for age, cooperative. mgs Pain: Location: suprapubic area Pain currently is 4 out of 10 on a pain scale. Neurological: Level of Consciousness is awake, alert, Oriented to person, place, time. Cardiovascular: Capillary refill < 3 seconds. Respiratory: Airway is patent Respiratory effort is even, unlabored, Respiratory pattern is regular, symmetrical. Derm: Skin is pink, warm & dry. 12/24 00:39 General: Appears in no apparent distress, Behavior is appropriate for age, cooperative. mgs Pain: Location: pelvis Pain currently is 4 out of 10 on a pain scale. Neurological: Level of Consciousness is awake, alert, Oriented to person, place, time. Cardiovascular: Capillary refill < 3 seconds. Respiratory: Airway is patent Respiratory effort is even, unlabored, Respiratory pattern is regular, symmetrical. Derm: Skin is pink, warm & dry. 01:21 General: Appears in no apparent distress, Behavior is cooperative. Neurological: Level mgs of Consciousness is awake, alert, Oriented to person, place, time. Cardiovascular: Capillary refill < 3 seconds. Respiratory: Airway is patent Respiratory effort is even, unlabored, Respiratory pattern is regular, symmetrical. Derm: Skin is pink, warm & dry. 02:06 General: Appears in no apparent distress, Behavior is appropriate for age, cooperative. mgs Neurological: Level of Consciousness is awake, alert, Oriented to person, place, time. Cardiovascular: Capillary refill < 3 seconds. Respiratory: Airway is patent Respiratory effort is even, unlabored, Respiratory pattern is regular, symmetrical. Derm: Skin is pink, warm & dry. 03:08 General: Appears in no apparent distress, Behavior is cooperative. Pain: Location: mgs suprapubic area Pain currently is 5 out of 10 on a pain scale. Quality of pain is described as crampy. Neurological: Level of Consciousness is awake, alert, Oriented to person, place, time. Cardiovascular: Capillary refill < 3 seconds. Respiratory: Airway is patent Respiratory effort is even, unlabored, Respiratory pattern is regular, symmetrical. Derm: Skin is pink, warm & dry. 03:45 General: Appears in no apparent distress, Behavior is appropriate for age, cooperative. mgs Neurological: Level of Consciousness is awake, alert, Oriented to person, place, time. Cardiovascular: Capillary refill < 3 seconds. Respiratory: Airway is patent Respiratory effort is even, unlabored, Respiratory pattern is regular, symmetrical. Derm: Skin is pink, warm & dry. Vital Signs: 12/23 21:54 BP 114 / 68; Pulse 67; Resp 18; Temp 97.6(O); Pulse Ox 100% on R/A; Weight 61.23 kg ct3 (R); Height 5 ft. 6 in. (167.64 cm) (R); Pain 9/10; 23:15 BP 123 / 80 (auto/); mgs 23:16 Pulse 74 MON; Pulse Ox 100% ; mgs 23:18 BP 115 / 72 (auto/); mgs 23:18 Pulse 70 MON; Pulse Ox 99% ; mgs 23:48 BP 103 / 57 (auto/); mgs 23:48 Pulse 70 MON; Pulse Ox 98% ; mgs 02 00:18 BP 101 / 66 (auto/); mgs 00:18 Pulse 62 MON; Pulse Ox 99% ; mgs 00:48 BP 107 / 59 (auto/); mgs 00:48 Pulse 70 MON; Pulse Ox 97% ; mgs 01:18 BP 103 / 57 (auto/); mgs 01:18 Pulse 68 MON; Pulse Ox 97% ; mgs 03:39 BP 112 / 67; Pulse 82; Resp 18; Temp 98.8(TE); Pulse Ox 99% on R/A; Pain 7/10; mdr 12/23 21:54 Body Mass Index 21.79 (61.23 kg, 167.64 cm) ct3 Vitals: 02 21:54 Log In Time: December 23, 2016 at 21:51. ct3 ED Course: 21:53 Patient visited by Tanisha Wells PCA. ct3 21:53 Ben [facility] is Private Physician. ct3 21:53 Patient moved to Waiting ct3 21:55 Patient moved to Pre RCE ct3 22:06 Triage Initiated rs3 22:07 Patient visited by Kenia Tee RN. rs3 22:36 Heena Cortes, RN is Primary Nurse. kc3 22:36 Patient moved to 7 kc3 22:38 George Lay DO is Attending Physician. mm11 22:38 Patient visited by George Lay DO. mm11 22:47 Primary Nurse role handed off by Heena Cortes RN ar3 22:50 Patient visited by George Lay DO. mm11 23:11 George Haskins RN is Primary Nurse. mgs 23:13 Inserted saline lock: 20 gauge in right antecubital area and blood collected. The mgs patient tolerated the procedure well. 23:18 Urinalysis Sent. mgs 23:18 Urine Culture Sent. mgs 23:33 Patient visited by George Haskins RN. mgs 02 00:45 Patient visited by George Haskins RN. mgs 01:20 Patient visited by George Lay DO. mm11 01:22 Patient visited by George Haskins RN. mgs 01:38 [facility] Payment Agreement was scanned into [employer] and attached to record. slh 02:07 Patient visited by George Haskins RN. mgs 03:07 Patient visited by George Lay DO. mm11 03:11 CT ABD & PELVIS: IV and Oral Contrast Returned. EDMS 03:23 Yanique Santos MD is Referral Physician. mm11 03:[address] PCA. mdr 03:45 The patient / caregiver is instructed regarding the plan of care and ED course. mgs 03:45 Discontinued IV lock intact, bleeding controlled, pressure dressing applied, No mgs redness/swelling at site. No procedures done that require assistance. 14:09 T-Sheet-- Draft Copy was scanned into [employer] and attached to record. gb 14:09 Radiology Report was scanned into [employer] and attached to record. gb Administered Medications: 12/23 23:10 Drug: morphine 4 mg [morphine 4 mg/mL intravenous cartridge (1 mL)] Route: IVP; Site: mgs right antecubital; 23:12 Drug: Metoclopramide 10 mg [metoclopramide 5 mg/mL injection solution] Route: IV; Rate: mgs 40 mg/hr; Infused Over: 15 mins; Site: right antecubital; 23:59 Drug: Diatrizoate Meglumine & Sodium 10 ml [diatrizoate meglumine and diat.sodium 66 mgs %-10 % oral solution (10 mL)] Route: PO; 12/24 00:30 Drug: Diatrizoate Meglumine & Sodium 10 ml [diatrizoate meglumine and diat.sodium 66 mgs %-10 % oral solution (10 mL)] Route: PO; 01:06 Drug: morphine 4 mg [morphine 4 mg/mL intravenous cartridge (1 mL)] Route: IVP; Site: mv5 right antecubital; Order Results: Lab Order: -Blood Culture; SPEC'M 12/23/16 22:59 Test: BLOOD CULTURE; Value: No growth after 24 hours . All specimens observed; Status: F Test: BLOOD CULTURE; Value: for 5 days. Results final at that time.; Status: F Test: BLOOD CULTURE; Value: No Growth after 48 hours. All Specimens observed; Status: F Test: BLOOD CULTURE; Value: for 7 days. Results final at that time.; Status: F Lab Order: Amylase; SPEC'M 12/23/16 22:59 Test: AMYLASE; Value: 52; Range: 25-115; Units: U/L; Status: F Lab Order: Basic Metabolic Profile; SPEC'M 12/23/16 22:59 Test: GLUCOSE, FASTING; Value: 87; Range: 70-105; Units: MG/DL; Status: F Test: BLOOD UREA NITROGEN; Value: 13; Range: 7-18; Units: MG/DL; Status: F Test: CREATININE FOR GFR; Value: 0.95; Range: 0.55-1.02; Units: MG/DL; Status: F Test: SODIUM LEVEL; Range: 136-145; Units: MEQ/L; Status: I Test: POTASSIUM SERUM; Range: 3.5-5.1; Units: MEQ/L; Status: I Test: CHLORIDE LEVEL; Range: 98-107; Units: MEQ/L; Status: I Test: CARBON DIOXIDE LEVEL; Range: 21-32; Units: MEQ/L; Status: I Test: ANION GAP; Range: 8-16; Units: MEQ/L; Status: I Test: CALCIUM LEVEL; Range: 8.5-10.1; Units: MG/DL; Status: I Test: GLOMERULAR FILTRATION RATE; Value: > 60.0; Range: >60; Status: F Test: SODIUM LEVEL; Value: 143; Range: 136-145; Units: MEQ/L; Status: F Test: POTASSIUM SERUM; Value: 3.5; Range: 3.5-5.1; Units: MEQ/L; Status: F Test: CHLORIDE LEVEL; Value: 110; Range: 98-107; Abnormal: Above high normal; Units: MEQ/L; Status: F Test: CARBON DIOXIDE LEVEL; Value: 26; Range: 21-32; Units: MEQ/L; Status: F Test: ANION GAP; Value: 7; Range: 8-16; Abnormal: Below low normal; Units: MEQ/L; Status: F Test: CALCIUM LEVEL; Value: 8.2; Range: 8.5-10.1; Abnormal: Below low normal; Units: MG/DL; Status: F Test Note: ; Units are mL/min/1.73 m2 Chronic Kidney Disease Staging per NKF: Stage I & II GFR >=60 Normal to Mildly Decreased Stage III GFR 30-59 Moderately Decreased Stage IV GFR 15-29 Severely Decreased Stage V GFR <15 Very Little GFR Left ESRD GFR <15 on SPINNING SUPERVISOR Lab Order: CBC with Diff; SPEC'M 12/23/16 22:59 Test: WHITE BLOOD COUNT; Value: 8.7; Range: 4.0-10.0; Units: K/mm3; Status: F Test: RED BLOOD COUNT; Value: 4.18; Range: 4.00-5.40; Units: M/mm3; Status: F Test: HEMOGLOBIN; Value: 13.1; Range: 12.0-16.0; Units: g/dl; Status: F Test: HEMATOCRIT; Value: 38.5; Range: 36.0-47.0; Units: %; Status: F Test: MEAN CORPUSCULAR VOLUME; Value: 92.0; Range: 80.0-96.0; Units: fl; Status: F Test: MEAN CORPUSCULAR HEMOGLOBIN; Value: 31.4; Range: 27.0-33.0; Units: pg; Status: F Test: MEAN CORPUSCULAR HGB CONC; Value: 34.2; Range: 32.0-36.5; Units: g/dl; Status: F Test: RED CELL DISTRIBUTION WIDTH; Value: 12.6; Range: 11.5-14.5; Units: %; Status: F Test: PLATELET COUNT, AUTOMATED; Value: 213; Range: 150-450; Units: k/mm3; Status: F Test: NEUTROPHILS %; Value: 67.6; Range: 36.0-66.0; Abnormal: Above high normal; Units: %; Status: F Test: LYMPH %; Value: 24.7; Range: 24.0-44.0; Units: %; Status: F Test: MONO %; Value: 5.1; Range: 0.0-5.0; Abnormal: Above high normal; Units: %; Status: F Test: EOS %; Value: 1.1; Range: 0.0-3.0; Units: %; Status: F Test: BASO %; Value: 0.3; Range: 0.0-1.0; Units: %; Status: F Test: LARGE UNSTAINED CELL %; Value: 1.0; Range: 0.0-4.0; Units: %; Status: F Test: NEUTROPHILS #; Value: 5.9; Range: 1.8-7.7; Units: K/mm3; Status: F Test: LYMPH #; Value: 2.3; Range: 1.5-6.5; Units: K/mm3; Status: F Test: MONO #; Value: 0.5; Range: 0.0-0.8; Units: K/mm3; Status: F Test: EOS #; Value: 0.1; Range: 0.0-0.50; Units: K/mm3; Status: F Test: BASO #; Value: 0.0; Range: 0.0-0.2; Units: K/mm3; Status: F Test: LARGE UNSTAINED CELL #; Value: 0.1; Range: 0.0-0.4; Units: K/mm3; Status: F Lab Order: HCG,Serum Qualitative; [facility] 12/23/16 22:59 Test: HCG, SERUM QUALITATIVE; Value: NEGATIVE; Range: NEGATIVE; Status: F Lab Order: Lipase; [facility] 12/23/16 22:59 Test: LIPASE; Value: 225; Range: 73-393; Units: U/L; Status: F Lab Order: Liver Profile; [facility] 12/23/16 22:59 Test: AST/SGOT; Value: 9; Range: 15-37; Abnormal: Below low normal; Units: U/L; Status: F Test: ALT/SGPT; Value: 14; Range: 12-78; Units: U/L; Status: F Test: ALKALINE PHOSPHATASE; Value: 55; Range: 45-117; Units: U/L; Status: F Test: BILIRUBIN,TOTAL; Value: 0.5; Range: 0.2-1.0; Units: MG/DL; Status: F Test: BILIRUBIN,DIRECT; Value: 0.2; Range: 0.0-0.2; Units: MG/DL; Status: F Test: TOTAL PROTEIN; Value: 6.5; Range: 6.4-8.2; Units: GM/DL; Status: F Test: ALBUMIN; Value: 3.7; Range: 3.2-5.2; Units: GM/DL; Status: F Test: ALBUMIN/GLOBULIN RATIO; Value: 1.32; Range: 1.00-1.93; Status: F Lab Order: Urinalysis; [facility] 12/23/16 23:16 Test: APPEARANCE, URINE; Value: CLEAR; Range: CLEAR; Status: F Test: COLOR, URINE; Value: YELLOW; Range: YELLOW; Status: F Test: PH,URINE; Value: 6.0; Range: 5.0-9.0; Units: UNITS; Status: F Test: SPECIFIC GRAVITY URINE AUTO; Value: 1.013; Range: 1.002-1.035; Status: F Test: PROTEIN, URINE AUTO; Value: NEGATIVE; Range: NEGATIVE; Units: mg/dL; Status: F Test: GLUCOSE, URINE (UA) AUTO; Value: NEGATIVE; Range: NEGATIVE; Units: mg/dL; Status: F Test: KETONE, URINE AUTO; Value: NEGATIVE; Range: NEGATIVE; Units: mg/dL; Status: F Test: UROBILINOGEN, URINE AUTO; Value: 0.2; Range: 0.0-2.0; Units: mg/dL; Status: F Test: BILIRUBIN, URINE AUTO; Value: NEGATIVE; Range: NEGATIVE; Status: F Test: NITRITE, URINE AUTO; Value: NEGATIVE; Range: NEGATIVE; Status: F Test: LEUKOCYTE ESTERASE, URINE AUTO; Value: TRACE; Range: NEGATIVE; Abnormal: Above high normal; Status: F Test: BLOOD, URINE BLOOD; Value: NEGATIVE; Range: NEGATIVE; Status: F Test: WBC, URINE AUTO; Value: 12; Range: 0-3; Abnormal: Above high normal; Units: /HPF; Status: F Test: RBC, URINE AUTO; Value: 1; Range: 0-3; Units: /HPF; Status: F Test: BACTERIA, URINE AUTO; Value: 1+; Range: NEGATIVE; Abnormal: Above high normal; Status: F Test: SQUAMOUS EPITHELIAL CELL UR AU; Value: 0; Range: 0-6; Units: /HPF; Status: F Test: MUCUS, URINE; Value: SMALL; Range: NEGATIVE; Status: F Test: HYALINE CAST, URINE AUTO; Value: 0; Range: 0-1; Units: /LPF; Status: F Lab Order: Urine Culture; SPEC'M 12/23/16 23:16 Test: URINE CULTURE; Value: <EXTERNAL COMMENT eCWMed> FULL REPORT IN LAB NOTES (eCW and [employer]).; Status: F Test: URINE CULTURE; Value: URINE CULTURE RESULT NO GROWTH; Status: F Radiology Order: CT ABD & PELVIS: IV and Oral Contrast Test: CT ABD & PELVIS: IV and Oral Contrast REASON FOR EXAMINATION: Abdomen Pain; ; CLINICAL HISTORY: Abdominal pain.; TECHNIQUE: Multiple axial, sagittal and coronal CT images were obtained through the abdomen and pelvi; s after administration of oral and intravenous contrast material.; COMMENTS:; 3.5 cm peripherally enhancing cyst of the right ovary.; The liver is of uniform attenuation without mass or defect. There is no intra or extrahepatic biliary; ductal dilatation. The spleen is normal. The gallbladder is within normal limits. The pancreas is of; normal contour and attenuation characteristics. There is no evidence of adrenal mass.; Both kidneys demonstrate prompt and equal nephrograms. The kidneys are normal in size, shape and conf; iguration. There is no evidence of renal or ureteral mass. No renal or ureteral calculi are identifie; d. There is no hydroureter or hydronephrosis.; No evidence for appendicitis. There is no bowel wall thickening. No evidence for small or large joshua; l obstruction.; There is no evidence of intrinsic or extrinsic bladder mass. There is small amount of free pelvic flu; id.; Images of the lung bases show no evidence of pleural or parenchymal mass. There are no pleural effusi; ons.; The bony structures are free of lytic or blastic lesions.; Changes of pelvic congestion syndrome.; IMPRESSION:; Ruptured follicle/corpus luteum cyst of the right ovary.; Small amount of free fluid in the pelvis.; Unremarkable intrauterine device.; Mildly thickened bladder. Tiny air density in the bladder. Please correlate with recent instrumentati; on.; Thank you for your kind referral of this patient.; ; Outcome: 03:24 Discharge ordered by Provider. mm11 03:45 Discharge Assessment: Patient awake, alert and oriented x 3. No cognitive and/or mgs functional deficits noted. Patient verbalized understanding of disposition instructions. patient administered narcotics - yes. Pt provided with safe discharge. The following High Risk Discharge criteria are identified: None. Discharged to home ambulatory, with significant other. Condition: stable. Discharge instructions given to patient, Instructed on discharge instructions, follow up and referral plans. medication usage, Demonstrated understanding of instructions, medications, Pt was receptive of discharge instructions/ teaching. Prescriptions given X 1. CT Study completed. Property sent home with patient. 03:46 Patient left the ED. mgs Signatures: Dispatcher [employer] EDMS Eveline Morrow, Reg Reg George Cruz DO DO mm11 Kenia TeeRN RN rs3 Nickie Ivy, DOCK CLERK DOCK CLERK ar3 Tanisha Wells, DOCK CLERK DOCK CLERK ct3 Quyen Bethea [facility] George Haskins,ANTHONY RN mgs Jason Street, DOCK CLERK DOCK CLERK Renee Cotton RN RN kc3 Vannedery,Alison,RN RN mv5 Chart Complete MTDD
== END 2016-12-24 03:46 | disposition home or self-care (01) ==
LOC: M ED 21:52
DX: N83.11 Corpus luteum cyst of right ovary (principal); J30.9 Allergic rhinitis, unspecified; Z87.891 Personal history of nicotine dependence; Z79.899 Other long term (current) drug therapy
CPT/HCPCS: 36415; 74177; 80048; 80076; 81001; 82150; 83690; 84703; 85025; 87040; 87086; 93041; 96374; 96375; 96376; 99284; J2765; Q9963; Q9967

== ENCOUNTER 2017-05-04 16:04 | Emergency (ER) | payer SELFPAY ==
[~2017-05-04] VITALS: Ht 162.6 cm; Wt 54.4 kg
[2017-05-04 16:12] VITALS: BP 113/77
[2017-05-04] MEDS ORDERED: ZYRT10TA2 (16:18)
[2017-05-04] MEDS ORDERED: montelukast (16:18)
[2017-05-04] MEDS ORDERED: AUGM875T28 PO (16:43)
[2017-05-04] MEDS ORDERED: OLOP1OPD OU (16:43)
[2017-05-04] MEDS ORDERED: IBUP80TA PO (16:43)
[2017-05-04] MEDS ORDERED: MUCI600T37 PO (16:43)
== END 2017-05-04 16:55 | disposition home or self-care (01) ==
LOC: M ED 16:45
DX: J01.90 Acute sinusitis, unspecified (principal); H10.13 Acute atopic conjunctivitis, bilateral; R51 Headache; F41.9 Anxiety disorder, unspecified; F32.9 Major depressive disorder, single episode, unspecified; J30.1 Allergic rhinitis due to pollen; Z87.891 Personal history of nicotine dependence; Z79.899 Other long term (current) drug therapy; Z91.030 Bee allergy status; Z88.8 Allergy status to other drugs, medicaments and biological substances; Z91.018 Allergy to other foods

== ENCOUNTER 2018-01-28 11:40 | Emergency (ER) | payer MEDICAID, OTHER, SELFPAY ==
[2018-01-28] MEDS: NS 1,000 ML IV (12:56)
[2018-01-28] MEDS: METOCLOPRAMIDE INJ 10MG/2ML VIAL (J2765) IV (12:57)
[2018-01-28] MEDS: KETOROLAC 30 MG/ML VIAL (J1885) IV (12:57)
[2018-01-28] MEDS: ACETAMINOPHEN 325 MG TAB PO (13:49)
== END 2018-01-28 14:25 | disposition home or self-care (01) ==
LOC: M ED 11:40
DX: G43.909 Migraine, unspecified, not intractable, without status migrainosus (principal); F17.200 Nicotine dependence, unspecified, uncomplicated; Z91.018 Allergy to other foods; Z88.8 Allergy status to other drugs, medicaments and biological substances; Z91.030 Bee allergy status; J30.89 Other allergic rhinitis
CPT/HCPCS: J1885

== ENCOUNTER 2019-07-30 14:59 | Inpatient (IN) | payer OTHER ==
[~2019-07-30] VITALS: Ht 167.6 cm; Wt 55.5 kg
[~2019-07-30 14:59] MED LIST changes: +AUGM875T28 PO; +CYCL10TA PO; +IBUP-1022 PO; +MUCI600T37 PO; +OXYC1TAB23 PO; +PATA2.5S OU; -PERCOCET PO; +REGL10TA6 PO; +ZYRT10CA5; +montelukast
[2019-07-30 16:19] LABS: HEMOGLOBIN 13.6 g/dl (12.0-15.5); MEAN CORPUSCULAR HEMOGLOBIN 30.6 pg (27.0-33.0); MEAN CORPUSCULAR HGB CONC 33.2 g/dl (32.0-36.5); MEAN CORPUSCULAR VOLUME 92.3 fl (80.0-96.0); PLATELET COUNT, AUTOMATED 220 10^3/uL (150-450); RED BLOOD COUNT 4.44 10^6/uL (4.00-5.40); WHITE BLOOD COUNT 8.6 10^3/uL (4.0-10.0)
[2019-07-30 16:39] LABS: AMPHETAMINES LEVEL URINE NEGATIVE (NEGATIVE); BARBITURATES URINE NEGATIVE (NEGATIVE); BENZODIAZEPINES URINE NEGATIVE (NEGATIVE); CANNABINOIDS URINE NEGATIVE (NEGATIVE); COCAINE METABOLITE URINE NEGATIVE (NEGATIVE); METHADONE URINE NEGATIVE (NEGATIVE); OPIATES URINE NEGATIVE (NEGATIVE); PHENCYCLIDINE URINE NEGATIVE (NEGATIVE)
[2019-07-30 16:44] LABS: HCG, SERUM QUALITATIVE NEGATIVE (NEGATIVE)
[2019-07-30 16:53] LABS: ACETAMINOPHEN LEVEL < 2.0 UG/ML (10.0-30.0); ALBUMIN 3.9 GM/DL (3.2-5.2); ALT/SGPT 14 U/L (12-78); BILIRUBIN,DIRECT 0.2 MG/DL (0.0-0.2); BILIRUBIN,TOTAL 0.5 MG/DL (0.2-1.0); BLOOD UREA NITROGEN 8 MG/DL (7-18); CALCIUM LEVEL 8.7 MG/DL (8.5-10.1); CARBON DIOXIDE LEVEL 29 MEQ/L (21-32); CHLORIDE LEVEL 106 MEQ/L (98-107); CREATININE FOR GFR 0.82 MG/DL (0.55-1.30); ETHYL ALCOHOL (ETHANOL) < 0.003 % (0.000-0.010); GLOMERULAR FILTRATION RATE > 60.0 (>60); GLUCOSE, FASTING 83 MG/DL (70-100); POTASSIUM SERUM 3.5 MEQ/L (3.5-5.1); SALICYLATE LEVEL < 1.7 MG/DL (5.0-30.0); SODIUM LEVEL 142 MEQ/L (136-145); THYROID STIMULATING HORMONE 0.518 uIU/ML (0.358-3.740); TOTAL PROTEIN 6.9 GM/DL (6.4-8.2)
[2019-07-30] MEDS ORDERED: MAALOX 30 ML SUSP *UDC PO PRN (20:15)
[2019-07-30] MEDS ORDERED: traZODone 50 MG TAB PO PRN (20:15)
[2019-07-30] MEDS ORDERED: MOM 30ML SUSPENSION UDC PO PRN (20:15)
[2019-07-31 01:50] VITALS: BP 115/79
[2019-07-31] MEDS ORDERED: NICOTINE 21MG/24HR 1 EA TRANSDERMAL TD SCH (09:00)
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
[2019-07-31] MEDS ORDERED: NICOTINE 21MG/24HR 1 EA TRANSDERMAL TD PRN (10:00)
[2019-07-31] MEDS ORDERED: FLUoxetine 10 MG CAP PO ONE (10:45)
[2019-07-31] MEDS: ACETAMINOPHEN TAB 650MG DOSE (2X325MG) PO PRN (13:41)
[2019-07-31] MEDS ORDERED: diphenhydrAMINE 25 MG CAP PO ONE (13:45)
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
[2019-07-31 15:51] VITALS: BP 94/58
[2019-08-01 06:21] VITALS: BP 127/62
[2019-08-01 08:09] LABS: BLOOD UREA NITROGEN 12 MG/DL (7-18); CALCIUM LEVEL 8.6 MG/DL (8.5-10.1); CARBON DIOXIDE LEVEL 28 MEQ/L (21-32); CHLORIDE LEVEL 110 MEQ/L (98-107); CREATININE FOR GFR 0.96 MG/DL (0.55-1.30); GLOMERULAR FILTRATION RATE > 60.0 (>60); GLUCOSE, FASTING 90 MG/DL (70-100); SODIUM LEVEL 143 MEQ/L (136-145)
[2019-08-01] MEDS ORDERED: ENOXAPARIN 40 MG/0.4 ML SYRINGE (J1650) SC SCH (09:00)
[2019-08-01] MEDS: FLUoxetine 20 MG CAP PO SCH (09:02)
[2019-08-01] MEDS: diphenhydrAMINE 25 MG CAP PO SCH ×2 (15:36→21:36)
[2019-08-01 16:33] VITALS: BP 98/56
[2019-08-02 07:08] VITALS: BP 109/65
[2019-08-02] MEDS: diphenhydrAMINE 25 MG CAP PO SCH (09:20)
[2019-08-02] MEDS: FLUoxetine 20 MG CAP PO SCH (09:20)
--- NOTE | 2019-08-02 09:44 | MHIPN ---
DATE: 08/01/2019 CHIEF COMPLAINT: Feels stressed. SUBJECTIVE: Seen for followup in the presence of staff. Says feels stressed, anxious, but a little less so, now that she is in the hospital, and removed from the immediate concerns of her surroundings. She suggests may have had similar feelings even if she had not been drinking. She was seen by Dr. Peralta yesterday, and she says had spoken in terms of how she does well over the weekend, possible discharge early next week. MENTAL STATUS EXAM: Neat, cooperative, though a bit guarded. No agitation. No psychomotor retardation. Coherent. Affect restricted but reactive. Vague on suicidal thoughts. No firm plans. No homicidal ideation or intents. Currently no evidence of any psychosis. Cognition is grossly intact. Judgment and insight are compromised. ASSESSMENT: Other specified anxiety disorder. This potentially may include post-traumatic stress disorder. PLAN: Continue current care, including observation. Encouraged participation in activities in the unit.
[2019-08-02 16:12] VITALS: BP 118/78
--- NOTE | 2019-08-02 17:37 | MHIPN ---
DATE: 08/02/2019 VITAL SIGNS: Blood pressure 109/65, pulse 64, temperature 98.3. CHIEF COMPLAINT: Says feels okay. SUBJECTIVE: She is seen for followup in the presence of staff. Says feels a bit better, in that she is a bit more relaxed. She is here, away from her immediate stressors. Says has nightmares last night related to the past. Appetite is fair. MENTAL STATUS EXAMINATION: She is neat. She is cooperative. There is no agitation. No psychomotor retardation. Looks a bit tired, has just woken up from a nap. She is coherent. Restricted affect. Denies any suicidal thoughts or intents. No homicidal ideas or intents. Cognition is grossly intact. Judgment and insight remain compromised. ASSESSMENT: 1. Other specified anxiety disorder. PLAN: Continue observation and encourage participation in the unit, obtain collateral information. She is to continue with fluoxetine. We will discontinue the diphenhydramine and cetirizine, which she takes for allergies. She will see the psychiatrist, Dr. Peralta, and the treatment team tomorrow.
[2019-08-02] MEDS: ACETAMINOPHEN TAB 650MG DOSE (2X325MG) PO PRN (21:29)
[2019-08-03 06:33] VITALS: BP 104/66
[2019-08-03] MEDS ORDERED: CETIRIZINE (ZyrTEC) 10 MG TAB PO SCH (09:00)
[2019-08-03] MEDS: FLUoxetine 20 MG CAP PO SCH (09:17)
[2019-08-03] MEDS ORDERED: FLUO20CA19 PO (09:51)
[2019-08-03] MEDS ORDERED: NICO21PAT TD (09:51)
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
[2019-08-12] MEDS ORDERED: CETI10TA8 PO (00:28)
[2019-08-12] MEDS ORDERED: FLUO20CA20 PO (00:28)
[2019-08-12] MEDS ORDERED: IBUP-1764 PO (00:28)
[2019-08-17] MEDS ORDERED: FLUO10CA15 PO (09:31)
[2019-08-17] MEDS ORDERED: BUPR150T3 PO (09:31)
== END 2019-08-03 15:25 | disposition home or self-care (01) | DRG 754 ==
LOC: M ED 14:59 → MERGE 20:13 → M ED INP 20:13 → M PSY 20:13
PROVIDERS: ADMIT Psychiatry & Neurology Addiction Medicine; ATTEND Psychiatry & Neurology Addiction Medicine
DX: F32.9 Major depressive disorder, single episode, unspecified (principal); R45.851 Suicidal ideations; F43.9 Reaction to severe stress, unspecified; F60.7 Dependent personality disorder; J30.2 Other seasonal allergic rhinitis; F41.9 Anxiety disorder, unspecified; G43.909 Migraine, unspecified, not intractable, without status migrainosus; F17.200 Nicotine dependence, unspecified, uncomplicated; Z63.5 Disruption of family by separation and divorce; Z63.8 Other specified problems related to primary support group; Z91.410 Personal history of adult physical and sexual abuse; Z91.018 Allergy to other foods; Z81.8 Family history of other mental and behavioral disorders; Z88.8 Allergy status to other drugs, medicaments and biological substances

== ENCOUNTER 2019-08-05 21:12 | Emergency (ER) | payer OTHER ==
[~2019-08-05] VITALS: Ht 167.6 cm; Wt 55.1 kg
[~2019-08-05 21:12] MED LIST changes: +FLUO20CA19 PO; +NICO21PAT TD
[2019-08-05] MEDS ORDERED: IBUP200T45 PO (21:19)
[2019-08-05 21:57] LABS: HEMOGLOBIN 13.9 g/dl (12.0-15.5); MEAN CORPUSCULAR HEMOGLOBIN 30.3 pg (27.0-33.0); MEAN CORPUSCULAR HGB CONC 33.1 g/dl (32.0-36.5); MEAN CORPUSCULAR VOLUME 91.5 fl (80.0-96.0); PLATELET COUNT, AUTOMATED 227 10^3/uL (150-450); RED BLOOD COUNT 4.59 10^6/uL (4.00-5.40); WHITE BLOOD COUNT 7.7 10^3/uL (4.0-10.0)
[2019-08-05] MEDS ORDERED: METOCLOPRAMIDE INJ 10MG/2ML VIAL (J2765) IM ONE (22:30)
[2019-08-05 22:33] LABS: AMPHETAMINES LEVEL URINE NEGATIVE (NEGATIVE); BARBITURATES URINE NEGATIVE (NEGATIVE); BENZODIAZEPINES URINE NEGATIVE (NEGATIVE); CANNABINOIDS URINE NEGATIVE (NEGATIVE); COCAINE METABOLITE URINE NEGATIVE (NEGATIVE); METHADONE URINE NEGATIVE (NEGATIVE); OPIATES URINE NEGATIVE (NEGATIVE); PHENCYCLIDINE URINE NEGATIVE (NEGATIVE)
[2019-08-05 22:36] LABS: HCG, SERUM QUALITATIVE NEGATIVE (NEGATIVE)
[2019-08-05 22:37] LABS: ACETAMINOPHEN LEVEL < 2.0 UG/ML (10.0-30.0); ALBUMIN 4.5 GM/DL (3.2-5.2); ALT/SGPT 14 U/L (12-78); BILIRUBIN,DIRECT 0.2 MG/DL (0.0-0.2); BILIRUBIN,TOTAL 0.5 MG/DL (0.2-1.0); BLOOD UREA NITROGEN 15 MG/DL (7-18); CALCIUM LEVEL 8.7 MG/DL (8.5-10.1); CARBON DIOXIDE LEVEL 25 MEQ/L (21-32); CHLORIDE LEVEL 106 MEQ/L (98-107); CREATININE FOR GFR 1.02 MG/DL (0.55-1.30); ETHYL ALCOHOL (ETHANOL) 0.003 % (0.000-0.010); GLOMERULAR FILTRATION RATE > 60.0 (>60); GLUCOSE, FASTING 73 MG/DL (70-100); POTASSIUM SERUM 3.6 MEQ/L (3.5-5.1); SALICYLATE LEVEL < 1.7 MG/DL (5.0-30.0); SODIUM LEVEL 141 MEQ/L (136-145); TOTAL PROTEIN 7.2 GM/DL (6.4-8.2)
--- NOTE | 2019-08-06 00:18 | ECGEPIP ---
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
[2019-08-06] MEDS ORDERED: FLUoxetine 20 MG CAP PO ONE (07:45)
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
[2019-08-06 11:11] VITALS: BP 112/60
[2019-08-12] MEDS ORDERED: CETI10TA8 PO (00:28)
[2019-08-12] MEDS ORDERED: FLUO20CA8 PO (00:28)
[2019-08-12] MEDS ORDERED: IBUP-1764 PO (00:28)
[2019-08-17] MEDS ORDERED: FLUO10CA8 PO (09:31)
[2019-08-17] MEDS ORDERED: BUPR150T3 PO (09:31)
== END 2019-08-06 11:12 | disposition home or self-care (01) ==
LOC: M ED 21:12 → MERGE 21:12 → M ED 08-06 11:12
DX: F32.5 Major depressive disorder, single episode, in full remission (principal); F43.20 Adjustment disorder, unspecified; F43.10 Post-traumatic stress disorder, unspecified; F60.9 Personality disorder, unspecified; G43.909 Migraine, unspecified, not intractable, without status migrainosus; Z79.899 Other long term (current) drug therapy; Z91.018 Allergy to other foods; Z88.8 Allergy status to other drugs, medicaments and biological substances; Z91.030 Bee allergy status; Z91.5 Personal history of self-harm; F17.200 Nicotine dependence, unspecified, uncomplicated
CPT/HCPCS: 36415; 80048; 80076; 80307; 84443; 84703; 85027; 93005; 96372; 99284; G0480; J2765

== ENCOUNTER → 2019-08-24 | Outpatient (REF) | payer OTHER ==
[~2019-08-24] MED LIST changes: +BUPR150T3 PO; +CETI10TA8 PO; +FLUO10CA8 PO; +FLUO20CA8 PO; +IBUP-1764 PO; +IBUP200T45 PO
[2019-08-24 19:47] LABS: BASO # 0.1 10^3/uL (0.0-0.2); BASO % 0.8 % (0.0-1.0); EOS # 0.1 10^3/uL (0.0-0.5); EOS % 1.8 % (0.0-3.0); HEMATOCRIT 44.5 % (36.0-47.0); HEMOGLOBIN 14.6 g/dl (12.0-15.5); LYMPH # 1.3 10^3/uL (1.5-5.0); LYMPH % 20.4 % (24.0-44.0); MEAN CORPUSCULAR HEMOGLOBIN 30.5 pg (27.0-33.0); MEAN CORPUSCULAR HGB CONC 32.8 g/dl (32.0-36.5); MEAN CORPUSCULAR VOLUME 92.9 fl (80.0-96.0); MONO # 0.5 10^3/uL (0.0-0.8); MONO % 8.3 % (0.0-5.0); NEUTROPHILS # 4.3 10^3/uL (1.5-8.5); NEUTROPHILS % 68.4 % (36.0-66.0); PLATELET COUNT, AUTOMATED 253 10^3/uL (150-450); RED BLOOD COUNT 4.79 10^6/uL (4.00-5.40); WHITE BLOOD COUNT 6.2 10^3/uL (4.0-10.0)
[2019-08-24 19:53] LABS: ALT/SGPT 21 U/L (12-78); BILIRUBIN,TOTAL 0.5 MG/DL (0.2-1.0); BLOOD UREA NITROGEN 15 MG/DL (7-18); CALCIUM LEVEL 9.4 MG/DL (8.5-10.1); CARBON DIOXIDE LEVEL 30 MEQ/L (21-32); CHLORIDE LEVEL 106 MEQ/L (98-107); CHOLESTEROL LEVEL 137 MG/DL (<200); CHOLESTEROL RISK RATIO 3.805 (<5); CREATININE FOR GFR 1.09 MG/DL (0.55-1.30); FREE T4 1.03 NG/DL (0.76-1.46); GLOMERULAR FILTRATION RATE > 60.0 (>60); GLUCOSE, FASTING 101 MG/DL (70-100); HDL CHOLESTEROL 36 MG/DL (>40); LDL CHOLESTEROL 88 MG/DL (<100); NON-HDL-C 101 MG/DL; POTASSIUM SERUM 3.6 MEQ/L (3.5-5.1); SODIUM LEVEL 142 MEQ/L (136-145); TOTAL PROTEIN 7.6 GM/DL (6.4-8.2); TRIGLYCERIDES LEVEL 66 MG/DL (<150)
[2019-08-24 20:07] LABS: HEMOGLOBIN A1c 4.8 %
== END ==
LOC: M LAB REF 12:43
PROVIDERS: ATTEND Family Medicine
DX: Z13.228 Encounter for screening for other metabolic disorders (principal); R30.0 Dysuria

== ENCOUNTER 2019-12-25 23:50 | Emergency (ER) | payer MEDICAID, OTHER ==
[~2019-12-25] VITALS: Ht 167.6 cm; Wt 54.5 kg
[~2019-12-25 23:50] MED LIST changes: +FLUO10CA15 PO; -FLUO10CA8 PO; -FLUO20CA19 PO; +FLUO20CA20 PO; +FLUO20CA22 PO; -FLUO20CA8 PO
[2019-12-25] MEDS ORDERED: CELE50CA PO (23:59)
[2019-12-26] MEDS ORDERED: METOCLOPRAMIDE INJ 10MG/2ML VIAL (J2765) IV ONE (03:15)
[2019-12-26] MEDS ORDERED: KETOROLAC 30 MG/ML VIAL (J1885) IV ONE (03:15)
[2019-12-26] MEDS ORDERED: diphenhydrAMINE INJ 50MG/ML VIAL (J1200) IV ONE (03:15)
[2019-12-26] MEDS ORDERED: NS 1,000 ML IV ONE (03:15)
[2019-12-26 04:17] VITALS: BP 100/58
== END 2019-12-26 04:19 | disposition home or self-care (01) ==
LOC: M ED 23:50
DX: G43.911 Migraine, unspecified, intractable, with status migrainosus (principal); F17.210 Nicotine dependence, cigarettes, uncomplicated; Z88.8 Allergy status to other drugs, medicaments and biological substances; Z91.018 Allergy to other foods; Z79.899 Other long term (current) drug therapy
CPT/HCPCS: 96361; 96374; 96375; 99284; J1200; J1885; J2765

== ENCOUNTER 2020-01-02 19:02 | Emergency (ER) | payer MEDICAID ==
[~2020-01-02] VITALS: Ht 167.6 cm; Wt 54.8 kg
[~2020-01-02 19:02] MED LIST changes: +CELE50CA PO
[2020-01-02] MEDS ORDERED: NS 1,000 ML IV ONE (19:45)
[2020-01-02 20:01] LABS: BASO # 0.1 10^3/uL (0.0-0.2); BASO % 0.5 % (0.0-1.0); EOS # 0.1 10^3/uL (0.0-0.5); EOS % 0.7 % (0.0-3.0); HEMATOCRIT 38.9 % (36.0-47.0); HEMOGLOBIN 13.1 g/dl (12.0-15.5); LYMPH # 1.7 10^3/uL (1.5-5.0); LYMPH % 15.9 % (24.0-44.0); MEAN CORPUSCULAR HEMOGLOBIN 30.3 pg (27.0-33.0); MEAN CORPUSCULAR HGB CONC 33.7 g/dl (32.0-36.5); MEAN CORPUSCULAR VOLUME 89.8 fl (80.0-96.0); MONO # 0.6 10^3/uL (0.0-0.8); MONO % 5.7 % (0.0-5.0); NEUTROPHILS # 8.1 10^3/uL (1.5-8.5); NEUTROPHILS % 76.8 % (36.0-66.0); PLATELET COUNT, AUTOMATED 306 10^3/uL (150-450); RED BLOOD COUNT 4.33 10^6/uL (4.00-5.40); WHITE BLOOD COUNT 10.5 10^3/uL (4.0-10.0)
[2020-01-02] MEDS ORDERED: diphenhydrAMINE INJ 50MG/ML VIAL (J1200) IV STA (20:09)
[2020-01-02] MEDS ORDERED: KETOROLAC 30 MG/ML VIAL (J1885) IV ONE (20:15)
[2020-01-02] MEDS ORDERED: METOCLOPRAMIDE INJ 10MG/2ML VIAL (J2765) IV ONE (20:15)
[2020-01-02] MEDS ORDERED: POTASSIUM CHLORIDE 10 MEQ SR TABLET PO ONE (22:00)
[2020-01-02 22:03] VITALS: BP 121/62
== END 2020-01-02 22:10 | disposition home or self-care (01) ==
LOC: M ED 19:02
DX: G43.709 Chronic migraine without aura, not intractable, without status migrainosus (principal); Z79.899 Other long term (current) drug therapy; Z91.018 Allergy to other foods; Z91.048 Other nonmedicinal substance allergy status; Z88.8 Allergy status to other drugs, medicaments and biological substances
CPT/HCPCS: 70450; 80047; 84702; 85025; 96361; 96374; 96375; 99284; J1200; J1885; J2765

== ENCOUNTER 2020-01-10 16:30 | Emergency (ER) | payer MEDICAID, SELFPAY ==
[~2020-01-10] VITALS: Ht 167.6 cm; Wt 56.8 kg
[2020-01-10 16:31] VITALS: BP 96/60
[2020-01-10 17:00] LABS: BASO % 0.3 % (0.0-1.0); EOS # 0.1 10^3/uL (0.0-0.5); EOS % 0.5 % (0.0-3.0); HEMATOCRIT 41.5 % (36.0-47.0); HEMOGLOBIN 13.7 g/dl (12.0-15.5); LYMPH # 0.5 10^3/uL (1.5-5.0); LYMPH % 5.5 % (24.0-44.0); MEAN CORPUSCULAR HEMOGLOBIN 29.8 pg (27.0-33.0); MEAN CORPUSCULAR VOLUME 90.4 fl (80.0-96.0); MONO # 0.5 10^3/uL (0.0-0.8); NEUTROPHILS # 8.1 10^3/uL (1.5-8.5); NEUTROPHILS % 88.5 % (36.0-66.0); PLATELET COUNT, AUTOMATED 239 10^3/uL (150-450); RED BLOOD COUNT 4.59 10^6/uL (4.00-5.40); WHITE BLOOD COUNT 9.1 10^3/uL (4.0-10.0)
[2020-01-10 17:32] LABS: ALBUMIN 4.1 GM/DL (3.2-5.2); BILIRUBIN,DIRECT 0.2 MG/DL (0.0-0.2); BILIRUBIN,TOTAL 0.9 MG/DL (0.2-1.0); TOTAL PROTEIN 7.1 GM/DL (6.4-8.2)
[2020-01-10] MEDS ORDERED: NS 1,000 ML IV ONE (18:15)
[2020-01-10] MEDS ORDERED: METOCLOPRAMIDE INJ 10MG/2ML VIAL (J2765) IV ONE (18:15)
[2020-01-10] MEDS ORDERED: ISOVUE-370 76% 100ML VIAL (Q9967) As Ordered ONE (18:25)
--- NOTE | 2020-01-10 19:16 | REPVR ---
PROCEDURE INFORMATION: Exam: CT Abdomen And Pelvis With Contrast Exam date and time: 01/10/2020 6:28 PM Age: 29 years old Clinical indication: Abdominal pain; Generalized; Additional info: Central abd pain, n/v/d TECHNIQUE: Imaging protocol: Computed tomography of the abdomen and pelvis with intravenous contrast. Radiation optimization: All CT scans at this facility use at least one of these dose optimization techniques: automated exposure control; mA and/or kV adjustment per patient size (includes targeted exams where dose is matched to clinical indication); or iterative reconstruction. Contrast material: ISOVUE 370; Contrast volume: 100 ml; Contrast route: IV; COMPARISON: CT ABD PELVIS WITH CONTRAST 2016-12-24 01:52 FINDINGS: Liver: Normal. No mass. Gallbladder and bile ducts: Normal. No calcified stones. No ductal dilation. Pancreas: Normal. No ductal dilation. Spleen: Normal. No splenomegaly. Adrenals: Normal. No mass. Kidneys and ureters: Normal. No hydronephrosis. Stomach and bowel: Unremarkable. No obstruction. No mucosal thickening. Appendix: No evidence of appendicitis. Intraperitoneal space: Small amount of free fluid in the pelvis, most likely physiological pelvic intraperitoneal fluid as a result of patient's premenopausal reproductive status. Vasculature: Unremarkable. No abdominal aortic aneurysm. Lymph nodes: Unremarkable. No enlarged lymph nodes. Bladder: Unremarkable as visualized. Reproductive: Intrauterine device appears appropriately positioned. Physiologic 1.6 cm right ovarian cyst. Bones/joints: Unremarkable. No acute fracture. Soft tissues: Unremarkable. IMPRESSION: No acute abnormality. Electronically signed by: Yosef Joaquin On 01/10/2020 19:15:41 PM
[2020-01-10 19:28] LABS: INFLUENZA A AMPLIFICATION NEGATIVE (NEGATIVE); INFLUENZA B AMPLIFICATION NEGATIVE (NEGATIVE)
[2020-01-10] MEDS ORDERED: REGL10TA6 PO (20:53)
== END 2020-01-10 21:20 | disposition home or self-care (01) ==
LOC: M ED 16:30
DX: K52.9 Noninfective gastroenteritis and colitis, unspecified (principal); B34.9 Viral infection, unspecified; Z91.018 Allergy to other foods; Z88.8 Allergy status to other drugs, medicaments and biological substances
CPT/HCPCS: 36415; 74177; 80047; 80076; 81001; 83690; 84702; 85025; 87086; 87502; 87507; 96361; 96374; 99284; J2765; Q9967

== ENCOUNTER 2020-08-06 18:05 | Emergency (ER) | payer OTHER, SELFPAY ==
[~2020-08-06] VITALS: Ht 167.6 cm; Wt 59.5 kg
[~2020-08-06 18:05] MED LIST changes: +CYCL-707 PO; -CYCL10TA PO; -FLUO10CA15 PO; +FLUO10CA16 PO
[2020-08-06] MEDS ORDERED: SUMA50TA2 (18:13)
[2020-08-06] MEDS ORDERED: NS 1,000 ML IV ONE (19:15)
[2020-08-06 19:25] LABS: BASO % 0.4 % (0.0-1.0); EOS # 0.1 10^3/uL (0.0-0.5); EOS % 0.6 % (0.0-3.0); HEMATOCRIT 44.6 % (36.0-47.0); HEMOGLOBIN 14.4 g/dl (12.0-15.5); LYMPH # 1.5 10^3/uL (1.5-5.0); LYMPH % 16.1 % (24.0-44.0); MEAN CORPUSCULAR HEMOGLOBIN 30.1 pg (27.0-33.0); MEAN CORPUSCULAR HGB CONC 32.3 g/dl (32.0-36.5); MEAN CORPUSCULAR VOLUME 93.1 fl (80.0-96.0); MONO # 0.6 10^3/uL (0.0-0.8); MONO % 5.9 % (0.0-5.0); NEUTROPHILS # 7.3 10^3/uL (1.5-8.5); NEUTROPHILS % 76.7 % (36.0-66.0); PLATELET COUNT, AUTOMATED 239 10^3/uL (150-450); RED BLOOD COUNT 4.79 10^6/uL (4.00-5.40); WHITE BLOOD COUNT 9.5 10^3/uL (4.0-10.0)
[2020-08-06 19:50] LABS: ALBUMIN 3.9 GM/DL (3.2-5.2); BILIRUBIN,DIRECT 0.2 MG/DL (0.0-0.2); BILIRUBIN,TOTAL 0.7 MG/DL (0.2-1.0); TOTAL PROTEIN 7.3 GM/DL (6.4-8.2)
[2020-08-06 21:01] VITALS: BP 130/70
== END 2020-08-06 21:14 | disposition home or self-care (01) ==
LOC: M ED 18:05
DX: R11.2 Nausea with vomiting, unspecified (principal); F32.9 Major depressive disorder, single episode, unspecified; F41.9 Anxiety disorder, unspecified; Z87.442 Personal history of urinary calculi; Z87.440 Personal history of urinary (tract) infections; Z87.42 Personal history of other diseases of the female genital tract; F17.210 Nicotine dependence, cigarettes, uncomplicated; Z88.8 Allergy status to other drugs, medicaments and biological substances; Z91.018 Allergy to other foods; J30.2 Other seasonal allergic rhinitis; Z79.899 Other long term (current) drug therapy

== ENCOUNTER → 2021-08-04 | Outpatient (CLI) | payer OTHER ==
[~2021-08-04] MED LIST changes: +BUPR150T12 PO; -BUPR150T3 PO; +SUMA50TA2
--- NOTE | 2021-08-04 12:28 | REP ---
INDICATION: IUD PLACEMENT. COMPARISON: 04/17/2019. TECHNIQUE: Transabdominal and transvaginal scanning performed. FINDINGS: Uterine dimensions are 8.5 x 4.0 x 5.3 cm. Endometrial echo is 6 mm in AP dimension and centrally placed. IUD appears to be in good position within the endometrial canal. The bladder measures 6.6 x 4.8 x 9.3cm. The right ovary has dimensions of 3.6 x 2.0 x 2.6 cm. It's Doppler flow is normal with a resistive index of 0.48. The left ovary dimensions are 2.8 x 1.6 x 2.0 cm. It's Doppler flow was normal with resistive index of 0.61. There is no adnexal mass identified. No free fluid is seen in the cul-de-sac. IMPRESSION: IUD appears to be in good position within the endometrial canal. No other sonographic abnormality. <Electronically signed by Pasquale Duran > 08/04/21 [id number]
== END ==
LOC: M RAD 10:30
PROVIDERS: ATTEND Nurse Practitioner Family
DX: Z97.5 Presence of (intrauterine) contraceptive device (principal)

== ENCOUNTER → 2022-09-14 | Outpatient (REF) | payer OTHER ==
[~2022-09-14] MED LIST changes: +CETI-24; +CETI-25 PO; -CETI10TA8 PO; +FLUO-96 PO; -FLUO10CA16 PO; +FLUO10CA18 PO; -FLUO20CA20 PO; -IBUP200T45 PO; +IBUP200T46 PO
[2022-09-14 21:29] LABS: CHOLESTEROL RISK RATIO 3.756 (<5); THYROID STIMULATING HORMONE 1.06 uIU/ML (0.358-3.740)
== END ==
LOC: M LAB REF 20:36
PROVIDERS: ATTEND Pediatrics
DX: F41.9 Anxiety disorder, unspecified (principal); Z13.220 Encounter for screening for lipoid disorders

== ENCOUNTER 2023-02-24 04:28 | Emergency (ER) | payer OTHER ==
[~2023-02-24] VITALS: Ht 167.6 cm; Wt 68.8 kg
[2023-02-24] MEDS ORDERED: AMOXICILLIN 500 MG CAP PO ONE (07:15)
[2023-02-24] MEDS ORDERED: AMOX875T PO (07:16)
[2023-02-24 07:37] VITALS: BP 121/77
== END 2023-02-24 07:47 | disposition home or self-care (01) ==
LOC: M ED 04:28
DX: J02.0 Streptococcal pharyngitis (principal); R51.9 Headache, unspecified; F41.9 Anxiety disorder, unspecified; Z88.8 Allergy status to other drugs, medicaments and biological substances; Z91.018 Allergy to other foods

== ENCOUNTER 2023-05-01 12:06 | Emergency (ER) | payer OTHER ==
[~2023-05-01] VITALS: Ht 162.6 cm; Wt 66.4 kg
[~2023-05-01 12:06] MED LIST changes: +AMOX875T PO
[2023-05-01] MEDS ORDERED: MIREIUD (12:12)
[2023-05-01] MEDS ORDERED: SULF1TAB23 PO (14:15)
[2023-05-01] MEDS ORDERED: PHEN-372 PO (14:15)
[2023-05-01 14:42] VITALS: BP 116/77; TEMP 98.1; O2SAT 97
== END 2023-05-01 14:44 | disposition home or self-care (01) ==
LOC: M ED 12:06
DX: N30.01 Acute cystitis with hematuria (principal); F17.200 Nicotine dependence, unspecified, uncomplicated; Z91.018 Allergy to other foods; Z88.8 Allergy status to other drugs, medicaments and biological substances

== ENCOUNTER → 2023-05-22 | Outpatient (REF) | payer OTHER ==
[~2023-05-22] MED LIST changes: +MIREIUD; +PHEN-372 PO; +SULF1TAB23 PO
[2023-05-22 18:21] LABS: BASO # 0.1 10^3/uL (0.0-0.2); BASO % 0.8 % (0.0-1.0); EOS # 0.1 10^3/uL (0.0-0.5); EOS % 1.4 % (0.0-3.0); HEMATOCRIT 42.1 % (36.0-47.0); HEMOGLOBIN 14.2 g/dl (12.0-15.5); LYMPH # 1.8 10^3/uL (1.5-5.0); LYMPH % 30.5 % (24.0-44.0); MEAN CORPUSCULAR HEMOGLOBIN 31.2 pg (27.0-33.0); MEAN CORPUSCULAR HGB CONC 33.7 g/dl (32.0-36.5); MEAN CORPUSCULAR VOLUME 92.5 fl (80.0-96.0); MONO # 0.4 10^3/uL (0.0-0.8); MONO % 6.9 % (2.0-8.0); NEUTROPHILS # 3.6 10^3/uL (1.5-8.5); NEUTROPHILS % 60.1 % (36.0-66.0); PLATELET COUNT, AUTOMATED 247 10^3/uL (150-450); RED BLOOD COUNT 4.55 10^6/uL (4.00-5.40); WHITE BLOOD COUNT 5.9 10^3/uL (4.0-10.0)
[2023-05-22 18:51] LABS: ALBUMIN 4.2 G/DL (3.2-5.2); ALKALINE PHOSPHATASE 75 U/L (46-116); ALT/SGPT < 9 U/L (7.0-40); AST/SGOT 14 U/L (<34); BILIRUBIN,TOTAL 1.2 MG/DL (0.3-1.2); BLOOD UREA NITROGEN 13 MG/DL (9-23); CALCIUM LEVEL 9.4 MG/DL (8.5-10.1); CARBON DIOXIDE LEVEL 26 MMOL/L (20-31); CHLORIDE LEVEL 107 MMOL/L (98-107); CREATININE FOR GFR 0.88 MG/DL (0.55-1.30); FREE T4 1.01 NG/DL (0.89-1.76); GLOMERULAR FILTRATION RATE > 60.0 (>60); GLUCOSE, FASTING 84 MG/DL (60-100); SODIUM LEVEL 138 MMOL/L (136-145); THYROID STIMULATING HORMONE 1.151 uIU/ML (0.55-4.78); TOTAL PROTEIN 7.2 G/DL (5.7-8.2)
[2023-05-22 18:57] LABS: HEMOGLOBIN A1c 4.4 % (4.0-6.0)
== END ==
LOC: M LAB REF 16:31
PROVIDERS: ATTEND Physician Assistant
DX: G43.909 Migraine, unspecified, not intractable, without status migrainosus (principal); Z11.1 Encounter for screening for respiratory tuberculosis

== ENCOUNTER → 2023-05-29 | Outpatient (CLI) | payer OTHER | LOC: M LAB 14:52 | PROVIDERS: ATTEND Physician Assistant | DX: Z11.1 Encounter for screening for respiratory tuberculosis (principal) ==

== ENCOUNTER 2023-06-09 20:25 | Emergency (ER) | payer OTHER ==
[~2023-06-09] VITALS: Ht 167.6 cm; Wt 67.2 kg
[2023-06-09 21:52] LABS: BASO % 0.4 % (0.0-1.0); EOS # 0.1 10^3/uL (0.0-0.5); EOS % 1.2 % (0.0-3.0); HEMATOCRIT 43.1 % (36.0-47.0); HEMOGLOBIN 14.8 g/dl (12.0-15.5); LYMPH % 24.9 % (24.0-44.0); MEAN CORPUSCULAR HEMOGLOBIN 31.4 pg (27.0-33.0); MEAN CORPUSCULAR HGB CONC 34.3 g/dl (32.0-36.5); MEAN CORPUSCULAR VOLUME 91.3 fl (80.0-96.0); MONO # 0.5 10^3/uL (0.0-0.8); MONO % 6.5 % (2.0-8.0); NEUTROPHILS # 5.4 10^3/uL (1.5-8.5); NEUTROPHILS % 66.8 % (36.0-66.0); PLATELET COUNT, AUTOMATED 224 10^3/uL (150-450); RED BLOOD COUNT 4.72 10^6/uL (4.00-5.40); WHITE BLOOD COUNT 8.1 10^3/uL (4.0-10.0)
[2023-06-09 22:32] LABS: BLOOD UREA NITROGEN 10 MG/DL (9-23); CALCIUM LEVEL 9.2 MG/DL (8.5-10.1); CARBON DIOXIDE LEVEL 23 MMOL/L (20-31); CHLORIDE LEVEL 106 MMOL/L (98-107); CK-MB VALUE MASS < 1.0 NG/ML (<3.6); CREATININE FOR GFR 0.91 MG/DL (0.55-1.30); GLOMERULAR FILTRATION RATE > 60.0 (>60); GLUCOSE, FASTING 84 MG/DL (60-100); POTASSIUM SERUM 3.5 MMOL/L (3.5-5.1); SODIUM LEVEL 139 MMOL/L (136-145)
[2023-06-09 22:34] LABS: THYROID STIMULATING HORMONE 1.803 uIU/ML (0.55-4.78)
[2023-06-09 22:38] LABS: CPK CREATINE PHOSPHOKINASE 65 U/L (34-145); MB/CK RELATIVE INDEX 1.53 (< OR =4)
[2023-06-09] MEDS ORDERED: LORazepam 2 MG/ML 1ML VIAL IV STA (23:04)
[2023-06-09 23:45] VITALS: TEMP 98.3
[2023-06-10 00:31] LABS: CK-MB VALUE MASS < 1.0 NG/ML (<3.6)
[2023-06-10 00:33] LABS: CPK CREATINE PHOSPHOKINASE 66 U/L (34-145); MB/CK RELATIVE INDEX 1.51 (< OR =4)
[2023-06-10 01:15] VITALS: BP 107/64
[2023-06-10 01:16] VITALS: O2SAT 98
== END 2023-06-10 01:24 | disposition home or self-care (01) ==
LOC: M ED 20:25
DX: F41.0 Panic disorder [episodic paroxysmal anxiety] (principal); F32.A Depression, unspecified; Z88.8 Allergy status to other drugs, medicaments and biological substances; Z91.018 Allergy to other foods; Z79.899 Other long term (current) drug therapy
CPT/HCPCS: 71046; 80048; 82550; 82553; 84439; 84443; 85025; 93005; 96374; 99285; J2060

== ENCOUNTER → 2023-06-11 | Outpatient (CLI) | payer OTHER ==
[2023-06-11 11:43] LABS: RHEUMATOID FACTOR QUANT < 3.5 IU/ML (<14)
[2023-06-11 11:44] LABS: TOTAL 25(OH) VITAMIN D 24.8 NG/ML (20.0-100.0)
== END ==
LOC: M LAB 10:41
PROVIDERS: ATTEND Psychiatry & Neurology Neurology
DX: R51.9 Headache, unspecified (principal); R53.83 Other fatigue; M54.2 Cervicalgia

== ENCOUNTER 2023-10-05 13:16 | Emergency (ER) | payer OTHER ==
[~2023-10-05] VITALS: Ht 167.6 cm; Wt 66.6 kg
[2023-10-05 16:07] LABS: BASO # 0.1 10^3/uL (0.0-0.2); EOS # 0.2 10^3/uL (0.0-0.5); EOS % 1.8 % (0.0-3.0); HEMATOCRIT 43.4 % (36.0-47.0); HEMOGLOBIN 15.3 g/dl (12.0-15.5); LYMPH # 1.9 10^3/uL (1.5-5.0); LYMPH % 20.6 % (24.0-44.0); MEAN CORPUSCULAR HEMOGLOBIN 32.1 pg (27.0-33.0); MEAN CORPUSCULAR HGB CONC 35.3 g/dl (32.0-36.5); MEAN CORPUSCULAR VOLUME 91.2 fl (80.0-96.0); MONO # 0.8 10^3/uL (0.0-0.8); MONO % 8.2 % (2.0-8.0); NEUTROPHILS # 6.3 10^3/uL (1.5-8.5); PLATELET COUNT, AUTOMATED 261 10^3/uL (150-450); RED BLOOD COUNT 4.76 10^6/uL (4.00-5.40); WHITE BLOOD COUNT 9.3 10^3/uL (4.0-10.0)
[2023-10-05] MEDS ORDERED: ISOVUE-370 76% 100ML VIAL As Ordered ONE (16:56)
[2023-10-05 16:59] LABS: CK-MB VALUE MASS < 1.0 NG/ML (<3.6)
[2023-10-05 17:01] LABS: CPK CREATINE PHOSPHOKINASE 100 U/L (34-145)
[2023-10-05] MEDS ORDERED: ZITHTAB PO (18:25)
[2023-10-05] MEDS ORDERED: AMOX875T2 PO (18:25)
[2023-10-05] MEDS ORDERED: AUGMENTIN 875 MG TAB PO ONE (18:25)
== END 2023-10-05 18:39 | disposition home or self-care (01) ==
LOC: M ED 13:16
DX: J18.9 Pneumonia, unspecified organism (principal); Z79.899 Other long term (current) drug therapy; Z91.018 Allergy to other foods
CPT/HCPCS: 36415; 71046; 71275; 80047; 82550; 82553; 84702; 85025; 87486; 87581; 87633; 87798; 93005; 99284; Q9967

== ENCOUNTER → 2023-12-12 | Outpatient (CLI) | payer OTHER ==
[~2023-12-12] MED LIST changes: +AMOX875T2 PO
== END ==
LOC: M RAD 14:00
PROVIDERS: ATTEND Physician Assistant
DX: R00.2 Palpitations (principal)

== ENCOUNTER → 2024-04-09 | Outpatient (CLI) | payer OTHER ==
[~2024-04-09] MED LIST changes: +FLUO-290 PO; -FLUO10CA18 PO
== END ==
LOC: M RAD 16:10
PROVIDERS: ATTEND Physician Assistant Surgical
DX: M54.59 Other low back pain (principal)

== ENCOUNTER → 2024-04-14 | Outpatient (REF) | payer OTHER ==
[~2024-04-14] MED LIST changes: +FLUO-365 PO; -FLUO20CA22 PO
== END ==
LOC: M LAB REF 16:21
PROVIDERS: ATTEND Physician Assistant
DX: J02.9 Acute pharyngitis, unspecified (principal)

== ENCOUNTER → 2024-06-08 | Outpatient (CLI) | payer OTHER | LOC: M PLAIMG 08:03 | PROVIDERS: ATTEND Physician Assistant Surgical | DX: M94.261 Chondromalacia, right knee (principal) ==

== ENCOUNTER → 2024-06-08 | Outpatient (CLI) | payer OTHER ==
[2024-06-08 11:14] LABS: BASO # 0.1 10^3/uL (0.0-0.2); EOS # 0.1 10^3/uL (0.0-0.5); EOS % 1.7 % (0.0-3.0); HEMATOCRIT 44.6 % (36.0-47.0); HEMOGLOBIN 14.8 g/dl (12.0-15.5); LYMPH # 1.6 10^3/uL (1.5-5.0); LYMPH % 26.7 % (24.0-44.0); MEAN CORPUSCULAR HEMOGLOBIN 31.2 pg (27.0-33.0); MEAN CORPUSCULAR HGB CONC 33.2 g/dl (32.0-36.5); MEAN CORPUSCULAR VOLUME 94.1 fl (80.0-96.0); MONO # 0.4 10^3/uL (0.0-0.8); NEUTROPHILS # 3.7 10^3/uL (1.5-8.5); NEUTROPHILS % 63.6 % (36.0-66.0); PLATELET COUNT, AUTOMATED 244 10^3/uL (150-450); RED BLOOD COUNT 4.74 10^6/uL (4.00-5.40); WHITE BLOOD COUNT 5.8 10^3/uL (4.0-10.0)
== END ==
LOC: M LAB 09:33
PROVIDERS: ATTEND Internal Medicine Cardiovascular Disease
DX: R00.2 Palpitations (principal)

== ENCOUNTER → 2024-06-08 | Outpatient (CLI) | payer OTHER ==
[2024-06-08 11:35] LABS: ALKALINE PHOSPHATASE 83 U/L (46-116); ALT/SGPT 15 U/L (7.0-40); AST/SGOT 12 U/L (<34); BLOOD UREA NITROGEN 10 MG/DL (9-23); CALCIUM LEVEL 9.2 MG/DL (8.5-10.1); CARBON DIOXIDE LEVEL 28 MMOL/L (20-31); CHLORIDE LEVEL 109 MMOL/L (98-107); CHOLESTEROL LEVEL 155 MG/DL (<200); CHOLESTEROL RISK RATIO 4.01 (<5); CREATININE FOR GFR 0.81 MG/DL (0.55-1.30); GLOMERULAR FILTRATION RATE > 60.0 (>60); GLUCOSE, FASTING 87 MG/DL (60-100); HDL CHOLESTEROL 38.6 MG/DL (>40); LDL CHOLESTEROL 99.8 MG/DL (<100); NON-HDL-C 116.4 MG/DL; POTASSIUM SERUM 3.9 MMOL/L (3.5-5.1); SODIUM LEVEL 139 MMOL/L (136-145); TRIGLYCERIDES LEVEL 83 MG/DL (<150)
[2024-06-08 11:37] LABS: THYROID STIMULATING HORMONE 1.279 uIU/ML (0.55-4.78)
== END ==
LOC: M LAB 09:32
PROVIDERS: ATTEND Physician Assistant
DX: Z13.220 Encounter for screening for lipoid disorders (principal); Z13.1 Encounter for screening for diabetes mellitus

== ENCOUNTER 2024-08-02 06:11 | Emergency (ER) | payer OTHER ==
[~2024-08-02] VITALS: Ht 160 cm; Wt 72.4 kg
[2024-08-02] MEDS ORDERED: MUCI600T31 PO (10:26)
[2024-08-02] MEDS ORDERED: BENZ200C70 PO (10:26)
[2024-08-02 10:42] VITALS: BP 115/73; TEMP 98.5; O2SAT 99
== END 2024-08-02 10:44 | disposition home or self-care (01) ==
LOC: M ED 06:11
DX: R05.9 Cough, unspecified (principal); B34.1 Enterovirus infection, unspecified; Z88.8 Allergy status to other drugs, medicaments and biological substances; Z91.018 Allergy to other foods; Z79.2 Long term (current) use of antibiotics; Z79.899 Other long term (current) drug therapy

== ENCOUNTER 2024-12-12 03:18 | Emergency (ER) | payer OTHER ==
[~2024-12-12 03:18] MED LIST changes: +BENZ200C70 PO; -CELE50CA PO; +CELE50CA17 PO; +MUCI600T31 PO
[2024-12-12] MEDS ORDERED: BENZ200C70 PO (05:29)
[2024-12-12] MEDS ORDERED: REGL10TA6 PO (05:29)
[2024-12-12] MEDS ORDERED: MEDR4PAK PO (05:29)
[2024-12-12] MEDS: BENZONATATE 100MG CAPSULE PO ONE (05:44)
[2024-12-12] MEDS: METOCLOPRAMIDE 10MG TAB PO ONE (05:44)
[2024-12-12] MEDS: ACETAMINOPHEN 325 MG TAB PO ONE (05:44)
[2024-12-12] MEDS ORDERED: NIRM1TAB14 PO (06:02)
[2024-12-12 06:29] VITALS: BP 128/72; TEMP 99; O2SAT 99
== END 2024-12-12 06:31 | disposition home or self-care (01) ==
LOC: M ED 03:18 → EDBD 03:18 → M ED 06:31
DX: U07.1 COVID-19 (principal); F41.9 Anxiety disorder, unspecified; F32.A Depression, unspecified; Z91.018 Allergy to other foods; Z88.8 Allergy status to other drugs, medicaments and biological substances; Z79.2 Long term (current) use of antibiotics; Z79.899 Other long term (current) drug therapy

== ENCOUNTER → 2025-01-25 | Outpatient (CLI) | payer OTHER ==
[~2025-01-25] MED LIST changes: +MEDR4PAK PO; +NIRM1TAB14 PO
[2025-01-25 13:37] LABS: BASO # 0.1 10^3/uL (0.0-0.2); BASO % 0.9 % (0.0-1.0); EOS # 0.1 10^3/uL (0.0-0.5); EOS % 1.8 % (0.0-3.0); HEMATOCRIT 43.1 % (36.0-47.0); HEMOGLOBIN 14.1 g/dl (12.0-15.5); LYMPH # 1.9 10^3/uL (1.5-5.0); LYMPH % 28.8 % (24.0-44.0); MEAN CORPUSCULAR HEMOGLOBIN 31.1 pg (27.0-33.0); MEAN CORPUSCULAR HGB CONC 32.7 g/dl (32.0-36.5); MEAN CORPUSCULAR VOLUME 95.1 fl (80.0-96.0); MONO # 0.5 10^3/uL (0.0-0.8); NEUTROPHILS % 60.1 % (36.0-66.0); PLATELET COUNT, AUTOMATED 264 10^3/uL (150-450); RED BLOOD COUNT 4.53 10^6/uL (4.00-5.40); WHITE BLOOD COUNT 6.7 10^3/uL (4.0-10.0)
[2025-01-25 13:43] LABS: ERYTHROCYTE SEDIMENTATION RATE 8 mm/hr (0-20)
[2025-01-25 14:02] LABS: ALBUMIN 3.6 G/DL (3.2-5.2); ALKALINE PHOSPHATASE 90 U/L (35-104); ALT/SGPT 30 U/L (7.0-40); AST/SGOT 21 U/L (<34); BILIRUBIN,TOTAL 0.4 MG/DL (0.3-1.2); BLOOD UREA NITROGEN 8 MG/DL (9-23); C REACTIVE PROTEIN QUANTITATIV < 0.50 MG/DL (<1.0); CALCIUM LEVEL 8.7 MG/DL (8.5-10.1); CARBON DIOXIDE LEVEL 25 MMOL/L (20-31); CHLORIDE LEVEL 107 MMOL/L (98-107); GLOMERULAR FILTRATION RATE > 60.0 (>60); GLUCOSE, FASTING 99 MG/DL (60-100); POTASSIUM SERUM 3.9 MMOL/L (3.5-5.1); RHEUMATOID FACTOR QUANT < 3.5 IU/ML (<14); SODIUM LEVEL 141 MMOL/L (136-145); TOTAL PROTEIN 6.7 G/DL (5.7-8.2)
== END ==
LOC: M LAB 12:31
PROVIDERS: ATTEND Physician Assistant
DX: M79.10 Myalgia, unspecified site (principal)

== ENCOUNTER → 2025-07-28 | Outpatient (CLI) | payer OTHER ==
[~2025-07-28] MED LIST changes: -IBUP-1022 PO; +IBUP600T42 PO; -NIRM1TAB14 PO; +NIRM1TAB16 PO
[2025-07-29 12:07] LABS: RUBEOLA IgG ANTIBODY 13.70 AU/mL (>16.49)
== END ==
LOC: M LAB 11:15
PROVIDERS: ATTEND Nurse Practitioner Family
DX: Z11.1 Encounter for screening for respiratory tuberculosis (principal); Z78.9 Other specified health status

== ENCOUNTER → 2025-10-05 | Outpatient (REF) | payer OTHER ==
[~2025-10-05] MED LIST changes: +SULF-7 PO; -SULF1TAB23 PO
[2025-10-05 17:35] LABS: APPEARANCE, URINE CLEAR (CLEAR); BACTERIA, URINE AUTO NEGATIVE (NEGATIVE); BILIRUBIN, URINE AUTO NEGATIVE (NEGATIVE); BLOOD, URINE BLOOD NEGATIVE (NEGATIVE); GLUCOSE, URINE (UA) AUTO NEGATIVE (NEGATIVE); KETONE, URINE AUTO NEGATIVE (NEGATIVE); LEUKOCYTE ESTERASE, URINE AUTO NEGATIVE (NEGATIVE); NITRITE, URINE AUTO NEGATIVE (NEGATIVE); PROTEIN, URINE AUTO NEGATIVE (NEGATIVE); RBC, URINE AUTO 1 /HPF (0-3); SPECIFIC GRAVITY URINE AUTO 1.017 (1.002-1.035); SQUAMOUS EPITHELIAL CELL UR AU 0 /HPF (0-6); UROBILINOGEN, URINE AUTO 2.0 mg/dL (0.0-2.0); WBC, URINE AUTO 1 /HPF (0-3)
[2025-10-05 18:00] LABS: TOTAL PROTEIN,RANDOM URINE 19.4 MG/DL (0.0-14.0)
[2025-10-05 18:29] LABS: BASO # 0.1 10^3/uL (0.0-0.2); BASO % 0.7 % (0.0-1.0); EOS # 0.2 10^3/uL (0.0-0.5); EOS % 2.3 % (0.0-3.0); LYMPH # 2.3 10^3/uL (1.5-5.0); LYMPH % 26.5 % (24.0-44.0); MONO # 0.7 10^3/uL (0.0-0.8); MONO % 7.6 % (2.0-8.0); NEUTROPHILS # 5.4 10^3/uL (1.5-8.5); NEUTROPHILS % 62.7 % (36.0-66.0); PLATELET COUNT, AUTOMATED 314 10^3/uL (150-450)
[2025-10-05 18:45] LABS: C REACTIVE PROTEIN QUANTITATIV 0.51 MG/DL (<1.0); CPK CREATINE PHOSPHOKINASE 86.0 U/L (34-145)
[2025-10-05 18:46] LABS: ALT/SGPT 16.0 U/L (7.0-40); AST/SGOT 14.0 U/L (<34); CALCIUM LEVEL 8.8 MG/DL (8.5-10.1); CARBON DIOXIDE LEVEL 28.0 MMOL/L (20-31); CHLORIDE LEVEL 107.0 MMOL/L (98-107); CREATININE FOR GFR 1.05 MG/DL (0.55-1.30); GLOMERULAR FILTRATION RATE 71.5 (>60); IRON (FE) 62.0 UG/DL (50-170); MAGNESIUM LEVEL 2.1 MG/DL (1.8-2.4); PERCENT SATURATION 18.7 % (13.2-45.0); PHOSPHORUS LEVEL 3.4 MG/DL (2.5-4.9); POTASSIUM SERUM 3.9 MMOL/L (3.5-5.1); SODIUM LEVEL 144.0 MMOL/L (136-145)
[2025-10-05 18:47] LABS: COMPLEMENT C4 43.0 MG/DL (12-36)
[2025-10-05 18:48] LABS: TOTAL 25(OH) VITAMIN D 24.6 NG/ML (20.0-100.0); VITAMIN B12 LEVEL 263.0 PG/ML (211-911)
[2025-10-09 15:22] LABS: COMPLEMENT TOTAL (CH50) 60 U/mL (31-60)
[2025-10-10 14:27] LABS: VITAMIN B6,PYRIDOXAL PHOSPHATE 26.0 ng/mL (2.1-21.7)
[2025-10-11 02:08] LABS: PTT-LA 38 sec (<=40)
[2025-10-11 08:37] LABS: VITAMIN C, ASCORBIC ACID 0.2 mg/dL (0.3-2.7)
[2025-10-12 17:41] LABS: NICOTINAMIDE 36 ng/mL (see note); NICOTINIC ACID < 20 ng/mL (see note); VITAMIN B2 (RIBOFLAVIN) 12.6 nmol/L (6.2-39.0)
[2025-10-12 18:32] LABS: VITAMIN B1 LEVEL WHOLE BLOOD 169 nmol/L (78-185)
[2025-10-18 00:18] LABS: VITAMIN B7 (BIOTIN) 1270.1 pg/mL (221.0-3004.0)
== END ==
LOC: M SFHCRHEU 15:14
PROVIDERS: ATTEND Internal Medicine
DX: R76.89 Other specified abnormal immunological findings in serum (principal); R53.83 Other fatigue; M25.50 Pain in unspecified joint; M79.18 Myalgia, other site